=== PATIENT | male | born 1935 | race Caucasian/White ===

== ENCOUNTER 2018-12-19 16:20 | Emergency (ER) | payer MEDICARE, BC ==
[~2018-12-19 16:20] MED LIST: ASPI81CT PO; COZAAR; LIPITOR
[2018-12-19 16:22] VITALS: TEMP 97.6
[2018-12-19 16:36] LABS: BASO # 0.1 (0.0-0.2); BASO % 0.8 % (0.0-2.0); EOS # 0.3 (0.0-0.7); EOS % 3.6 % (0-4.0); GRAN # 5.3 (1.4-6.5); GRAN % 63.1 % (42.2-75.2); HEMATOCRIT 47.7 % (42.0-52.0); HEMOGLOBIN 15.7 g/dl (13.5-18.0); LYMPH # 1.9 (1.2-3.4); LYMPH % 22.2 % (20.0-51.0); MEAN CELL VOLUME 96 fl (80.0-100.0); MEAN CORPUSCULAR HEMOGLOBIN 32 pg (27.0-31.0); MEAN CORPUSCULAR HGB CONC 33 g/dl (33.0-37.0); MONO # 0.9 (0.1-0.6); MONO % 10.1 % (1.7-9.3); PLATELET COUNT 201 K/mm3 (130-400); RED BLOOD COUNT 4.97 M/mm3 (4.20-5.60); REDCELL DISTRIBUTION WIDTH-CV 12.4 % (11.5-14.5)
[2018-12-19 17:29] LABS: ALANINE AMINOTRANSFERASE 27 U/L (21-72); ALBUMIN 3.9 gm/dL (3.5-5.0); ALKALINE PHOSPHATASE 91 U/L (50-136); ANION GAP 9 mmol/L (7-16); AST,SGOT 23 U/L (15-37); BILIRUBIN,TOTAL 0.3 mg/dL (0.0-1.0); BLOOD UREA NITROGEN 21 mg/dL (9-20); CARBON DIOXIDE 24 mmol/L (22-30); CHLORIDE 107 mmol/L (98-107); CREATININE, serum 1.22 (0.66-1.25); GLUCOSE 126 mg/dL (74-106); POTASSIUM 3.7 mmol/L (3.4-5.0); SODIUM 140 mmol/L (137-145); TOTAL PROTEIN 6.6 gm/dL (6.4-8.2)
[2018-12-19 17:30] LABS: C-REACTIVE PROTEIN < 0.5 mg/dL (0.0-0.9)
[2018-12-19 18:28] LABS: PROLACTIN 26.5 ng/mL (3.7-17.9)
[2018-12-19 18:36] LABS: TROPONIN-I < 0.012 ng/mL (0.000-0.035)
[2018-12-19 19:35] VITALS: BP 120/69; PULSE 72
== END 2018-12-19 19:35 | disposition home or self-care (01) ==
LOC: COL.ER 16:20
PROVIDERS: Family Medicine
DX: R55 Syncope and collapse (principal); Z79.82 Long term (current) use of aspirin
CPT/HCPCS: J2405; J7030

== ENCOUNTER 2019-09-03 13:00 | Outpatient (RCR) | payer MEDICARE, BC ==
[2019-09-11] MEDS ORDERED: LIPITOR 40MG TA40 MG PO (20:04)
[2019-09-11] MEDS ORDERED: NYAMYC100000 U/G TP (20:05)
[2019-09-11] MEDS ORDERED: COZAAR 25MG25 MG/TAB PO (20:05)
[2019-09-11] MEDS ORDERED: PROZAC 20MG20 MG PO (20:06)
[2019-09-11] MEDS ORDERED: NIRAVAM1 MG PO (20:06)
[2019-09-11] MEDS ORDERED: PLAVIX 75MG TAB75 MG PO (20:07)
[2019-09-14] MEDS ORDERED: XANAX 0.5MG0.5 MG PO (12:29)
== END 2019-11-18 | disposition home or self-care (01) ==
LOC: WSPT
DX: I63.9 Cerebral infarction, unspecified (principal)

== ENCOUNTER 2019-09-11 19:11 | Inpatient (IN) | payer MEDICARE, BC ==
[~2019-09-11] VITALS: Ht 172.7 cm; Wt 85.4 kg
[2019-09-11 20:02] LABS: BASO # 0.1 (0.0-0.2); BASO % 0.7 % (0.0-2.0); EOS # 0.6 (0.0-0.7); EOS % 8.1 % (0-4.0); GRAN # 4.1 (1.4-6.5); GRAN % 58.1 % (42.2-75.2); HEMATOCRIT 47.2 % (42.0-52.0); HEMOGLOBIN 15.7 g/dl (13.5-18.0); LYMPH # 1.4 (1.2-3.4); MEAN CELL VOLUME 93 fl (80.0-100.0); MEAN CORPUSCULAR HEMOGLOBIN 31 pg (27.0-31.0); MEAN CORPUSCULAR HGB CONC 33 g/dl (33.0-37.0); MEAN PLATELET VOLUME 10.5 fl (7.4-10.4); MONO # 0.9 (0.1-0.6); PLATELET COUNT 199 K/mm3 (130-400); RED BLOOD COUNT 5.08 M/mm3 (4.20-5.60); REDCELL DISTRIBUTION WIDTH-CV 12.4 % (11.5-14.5)
[2019-09-11] MEDS ORDERED: LIPITOR 40MG TA40 MG PO (20:04)
[2019-09-11] MEDS ORDERED: NYAMYC100000 U/G TP (20:05)
[2019-09-11] MEDS ORDERED: COZAAR 25MG25 MG/TAB PO (20:05)
[2019-09-11] MEDS ORDERED: PROZAC 20MG20 MG PO (20:06)
[2019-09-11] MEDS ORDERED: NIRAVAM1 MG PO (20:06)
[2019-09-11] MEDS ORDERED: PLAVIX 75MG TAB75 MG PO (20:07)
[2019-09-11 20:15] LABS: ALANINE AMINOTRANSFERASE 17 U/L (4-49); ALBUMIN 3.8 gm/dL (3.5-5.0); ALKALINE PHOSPHATASE 107 U/L (50-136); ANION GAP 7 mmol/L (7-16); AST,SGOT 20 U/L (15-37); BILIRUBIN,TOTAL 0.5 mg/dL (0.0-1.0); BLOOD UREA NITROGEN 20 mg/dL (9-20); CALCIUM 9.1 mg/dL (8.4-10.2); CARBON DIOXIDE 28 mmol/L (22-30); CHLORIDE 103 mmol/L (98-107); CREATINE KINASE 33 U/L (55-170); CREATININE, serum 1.07 (0.66-1.25); GLUCOSE 92 mg/dL (74-106); LIPASE 45 U/L (23-300); POTASSIUM 3.9 mmol/L (3.4-5.0); SODIUM 138 mmol/L (137-145); TOTAL PROTEIN 6.8 gm/dL (6.4-8.2)
[2019-09-11 20:34] LABS: INR 1.1 (0.8-3.0); PROTHROMBIN TIME 12.7 SECONDS (9.7-12.8)
[2019-09-11 20:44] LABS: TROPONIN-I < 0.012 ng/mL (0.000-0.035)
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
[2019-09-11 22:55] VITALS: BP 127/83; PULSE 73; TEMP 97.8
[2019-09-11 23:00] VITALS: BP 127/83; PULSE 73; TEMP 97.8
--- NOTE | 2019-09-11 23:00 | NUR ---
PATIENT ADMITTED TO ROOM 345 VIA ER CART. BED ALARM ON.
--- NOTE | 2019-09-12 03:25 | NUR ---
PATIENT SLEEPING, DOES NOT WAKE WHEN ROOM ENTERED BY STAFF, OBSERVED BREATHING NONLABORED AND EVEN. BED ALARM ON. IVF INFUSING WITH NO PROBLEMS.
[2019-09-12 04:36] VITALS: BP 147/85; PULSE 79; TEMP 98
[2019-09-12 07:04] LABS: BASO % 0.4 % (0.0-2.0); EOS # 0.5 (0.0-0.7); EOS % 6.9 % (0-4.0); GRAN # 4.7 (1.4-6.5); GRAN % 66.2 % (42.2-75.2); HEMATOCRIT 42.8 % (42.0-52.0); HEMOGLOBIN 14.3 g/dl (13.5-18.0); LYMPH # 1.1 (1.2-3.4); LYMPH % 15.8 % (20.0-51.0); MEAN CELL VOLUME 94 fl (80.0-100.0); MEAN CORPUSCULAR HEMOGLOBIN 31 pg (27.0-31.0); MEAN CORPUSCULAR HGB CONC 33 g/dl (33.0-37.0); MONO # 0.7 (0.1-0.6); MONO % 10.4 % (1.7-9.3); PLATELET COUNT 191 K/mm3 (130-400); RED BLOOD COUNT 4.56 M/mm3 (4.20-5.60); REDCELL DISTRIBUTION WIDTH-CV 12.6 % (11.5-14.5)
[2019-09-12 07:11] LABS: CALCIUM 8.6 mg/dL (8.4-10.2); CREATININE, serum 0.99 (0.66-1.25); POTASSIUM 3.6 mmol/L (3.4-5.0)
[2019-09-12 07:19] VITALS: BP 167/86; PULSE 71; TEMP 98.8
--- NOTE | 2019-09-12 07:32 | NUR ---
PATIENT RESTING IN BED DURING CHANGE OF SHIFT REPORT GIVEN TO DAY SHIFT NURSESHERRI. BED ALARM ON.
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
--- NOTE | 2019-09-12 10:40 | NUR ---
MAIN met with the patient to discuss discharge plan. The patient lives in [place] with his , Rosibel (ph#[phone]), and [id number]. He reports that they are moving to a new house in [place] next Tuesday. He reports independence with ADLs and has a walker. He receives outpatient PT at [facility] 3 times a week. The patient's PCP is Dr. Clemente Webber and he receives his medications at [facility] in [place]. He reports no difficulties obtaining his meds. The patient does not have advanced directives in EMR, but he reports that he does have them completed and that his is his DPOA-HC. The patient reports that he is not sure if he will need any services upon discharge. PT then worked with the patient and they are recommending post-acute rehab. MAIN contacted the patient's , Rosibel, to review discharge plan and to discuss PT's recommendation. Rosibel confirmed the above information. Rosibel reports that it has to be the patient's decision on whether he would be agreeable to SNF or not. She states that he has been having a lot of falls lately. MAIN then followed up with the patient to review PT's recommendation. The patient reports that he would be open to post-acute rehab. MAIN provided him with Medicare.gov's list of SNFs in the [place] area. The patient reports that he does not have a preference at this time and would need to think about it. He requested that SW contact his back to review the facilities. MAIN then contacted Rosibel. Rosibel reports that she is not familiar with the facilities around here and asked SW to email her Medicare.gov's list. MAIN emailed Rosibel the list. MAIN to follow up with the patient and on preferences and will continue to follow.
[2019-09-12 12:00] VITALS: BP 145/81; PULSE 65; TEMP 97.4
[2019-09-12 16:00] VITALS: BP 162/82; PULSE 61; TEMP 97.5
--- NOTE | 2019-09-12 19:37 | NUR ---
PATIENT UP IN CHAIR EATING SUPPER DURING CHANGE OF SHIFT REPORT FROM DAY SHIFT NURSE. CHAIR ALARM ON.
[2019-09-12 19:52] VITALS: BP 157/91; PULSE 69; TEMP 97.7
--- NOTE | 2019-09-12 20:00 | NUR ---
PATIENT ANSWERS ORIENTATIONS APPROPRIATELY AND FOLLOWS COMMANDS WELL. PATIENT STATED HE FELT WEAK AND WAS ABLE TO TRANSFER FROM CHAIR TO BED WITH X1 STAFF ASST FROM CHAIR TO BED WITH GB&WW. REQUIRED FREQUENT CUES WITH TRANSFER POSITIONING. DENIES CHEST PAIN OR SHORTNESS OF BREATHE.
--- NOTE | 2019-09-12 21:30 | NUR ---
PATIENT REPORTS HE NEEDS TO HAVE XANAX TO HELP HIM SLEEP, TAKES XANAX AT HOME. CALLED SONY GARCES, INFORMED OF PATIENT'S REQUEST, ORDER TO BE ENTERED BY PROVIDER FOR MED.
[2019-09-13] VITALS (7 sets, daily range): BP systolic 93–167; BP diastolic 58–89; PULSE 60–85; TEMP 97.8–98.6
--- NOTE | 2019-09-13 07:27 | NUR ---
Patient sleeping during change of shift report given to day shift nurseJustyna. Bed alarm on.
[2019-09-13 09:28] LABS: BASO # 0.1 (0.0-0.2); BASO % 0.7 % (0.0-2.0); EOS # 0.6 (0.0-0.7); GRAN # 4.2 (1.4-6.5); GRAN % 61.5 % (42.2-75.2); HEMATOCRIT 44.3 % (42.0-52.0); HEMOGLOBIN 14.8 g/dl (13.5-18.0); LYMPH # 1.2 (1.2-3.4); LYMPH % 17.6 % (20.0-51.0); MEAN CELL VOLUME 93 fl (80.0-100.0); MEAN CORPUSCULAR HEMOGLOBIN 31 pg (27.0-31.0); MEAN CORPUSCULAR HGB CONC 33 g/dl (33.0-37.0); MEAN PLATELET VOLUME 10.7 fl (7.4-10.4); MONO # 0.8 (0.1-0.6); MONO % 11.8 % (1.7-9.3); PLATELET COUNT 190 K/mm3 (130-400); RED BLOOD COUNT 4.79 M/mm3 (4.20-5.60); REDCELL DISTRIBUTION WIDTH-CV 12.4 % (11.5-14.5)
[2019-09-13 09:49] LABS: CALCIUM 8.8 mg/dL (8.4-10.2); CREATININE, serum 1.01 (0.66-1.25); POTASSIUM 3.8 mmol/L (3.4-5.0)
--- NOTE | 2019-09-13 10:23 | NUR ---
Patient to IR for LP at 1020.
[2019-09-13 11:18] LABS: TOTAL PROTEIN,CSF 60 mg/dL (15-45)
[2019-09-13 12:16] LABS: CSF APPEARANCE CLEAR; CSF COLOR COLORLESS; CSF MONONUCLEAR 82 % (70-100); CSF POLYMORPHONUCLEAR 18 % (0-6); CSF RBC 0 /mm3 (0-0)
--- NOTE | 2019-09-13 13:55 | NUR ---
MAIN contacted the patient's , Rosibel, to follow up on preferences for post-acute rehab. Rosibel reports that she has not had a chance to look over the list that MAIN emailed her, but will later today. She states that she is agreeable for MAIN to go ahead and send referrals to [facility], [facility] [address], [facility], and [facility]. MAIN consulted IPR Director, Julianne. MAIN contacted and faxed [facility] to [facility], [facility], and [facility]. SW awaiting their screens.
--- NOTE | 2019-09-13 16:20 | NUR ---
Jeny, at [facility], reports that they are able to accept the patient for a skilled stay. SW to inform the patient and his and will continue to follow.
[2019-09-14 00:53] VITALS: BP 145/72; PULSE 70
--- NOTE | 2019-09-14 00:54 | NUR ---
Resting in bed at this time; denies any needs or concers; will continue to monitor.
[2019-09-14 04:37] VITALS: BP 145/85; PULSE 84; TEMP 97.9
--- NOTE | 2019-09-14 05:08 | NUR ---
Patient noted to have scant urine output this shift. Bladder scan showed 587 ml of urine in bladder. Patient currenlty attempting to use urinal to void. Will continue to monitor.
--- NOTE | 2019-09-14 07:52 | NUR ---
Patient alert and oriented, answers questions. Mentation much improved this morning. Requests to be discharged to home. No c/o at this time.
[2019-09-14 08:07] VITALS: BP 117/60; PULSE 68; TEMP 98.6
--- NOTE | 2019-09-14 08:41 | NUR ---
Patient to radiology at this time.
[2019-09-14] MEDS ORDERED: XANAX 0.5MG0.5 MG PO (12:29)
[2019-09-14 12:39] VITALS: BP 138/78; PULSE 99; TEMP 98.1
--- NOTE | 2019-09-14 13:47 | NUR ---
SW attended clinical rounds. The patient is to tentatively discharge today, 09/13. SW met with the patient to inform of [facility] acceptance and to follow up on preference. The patient reports that he [facility]. MAIN then contacted the patient's , Rosibel, to update. Rosibel reports that her mother is familiar with [facility] and prefers [facility] too and she would be agreeable with the patient going there for SNF. MAIN notified and faxed updates to Jeny at [facility]. MAIN presented and read the IM form outloud to the patient. The patient verbalized understanding and gave SW approval to sign the form on his behalf. SW provided him with a copy. SW to continue to follow.
--- NOTE | 2019-09-14 14:42 | NUR ---
The patient is to discharge today, 09/13, to [facility] for a skilled stay. Transportation was scheduled at 1515, via [facility]. SW informed the patient, his RN, and the patient's (Rosibel), via phone. They were all agreeable to the time. No additional needs at this time.
[2019-09-14 15:31] VITALS: BP 138/78; PULSE 99; TEMP 98.1
--- NOTE | 2019-09-14 15:59 | NUR ---
Attempted x2 to call report to [facility], no answer. Patient tranferred to [facility] via wheelchair/auto with transportation staff at 1600.
== END 2019-09-14 16:00 | disposition home or self-care (01) | DRG 57 ==
LOC: COL.ER 19:11 → SURG 20:52
PROVIDERS: Emergency Medicine; Hospitalist; Physician Assistant; ADMIT Student in an Organized Health Care Education/Training Program
PROC: 009U3ZX Drainage of Spinal Canal, Percutaneous Approach, Diagnostic (ICD-10-PCS; principal; 2019-09-13)
DX: G91.2 (Idiopathic) normal pressure hydrocephalus (principal); I10 Essential (primary) hypertension; G47.00 Insomnia, unspecified; F32.9 Major depressive disorder, single episode, unspecified; F41.9 Anxiety disorder, unspecified; G20 Parkinson's disease; I69.993 Ataxia following unspecified cerebrovascular disease
CPT/HCPCS: 99222-AI; 99231-AI; 99232-AI; 99239; A9585; J0360; J1650; J7030

== ENCOUNTER 2019-10-08 12:40 | Emergency (ER) | payer MEDICARE, BC ==
[~2019-10-08] VITALS: Ht 172.7 cm; Wt 84.1 kg
[~2019-10-08 12:40] MED LIST changes: +COZAAR 25MG25 MG/TAB PO; +LIPITOR 40MG TA40 MG PO; +NIRAVAM1 MG PO; +NYAMYC100000 U/G TP; +PLAVIX 75MG TAB75 MG PO; +PROZAC 20MG20 MG PO; +XANAX 0.5MG0.5 MG PO
[2019-10-08 12:41] VITALS: TEMP 97.9
[2019-10-08 13:27] LABS: BASO # 0.1 (0.0-0.2); BASO % 0.7 % (0.0-2.0); EOS # 0.5 (0.0-0.7); GRAN # 4.5 (1.4-6.5); GRAN % 60.3 % (42.2-75.2); HEMATOCRIT 47.5 % (42.0-52.0); HEMOGLOBIN 15.8 g/dl (13.5-18.0); LYMPH # 1.5 (1.2-3.4); LYMPH % 20.7 % (20.0-51.0); MEAN CELL VOLUME 94 fl (80.0-100.0); MEAN CORPUSCULAR HEMOGLOBIN 31 pg (27.0-31.0); MEAN CORPUSCULAR HGB CONC 33 g/dl (33.0-37.0); MEAN PLATELET VOLUME 10.7 fl (7.4-10.4); MONO # 0.8 (0.1-0.6); PLATELET COUNT 193 K/mm3 (130-400); RED BLOOD COUNT 5.05 M/mm3 (4.20-5.60); REDCELL DISTRIBUTION WIDTH-CV 12.4 % (11.5-14.5)
[2019-10-08 13:35] LABS: INR 1.1 (0.8-3.0); PROTHROMBIN TIME 12.8 SECONDS (9.7-12.8)
[2019-10-08 13:41] LABS: ALANINE AMINOTRANSFERASE 14 U/L (4-49); ALBUMIN 3.9 gm/dL (3.5-5.0); ALKALINE PHOSPHATASE 125 U/L (50-136); ANION GAP 7 mmol/L (7-16); AST,SGOT 20 U/L (15-37); BILIRUBIN,TOTAL 0.9 mg/dL (0.0-1.0); BLOOD UREA NITROGEN 20 mg/dL (9-20); CALCIUM 9.3 mg/dL (8.4-10.2); CARBON DIOXIDE 29 mmol/L (22-30); CHLORIDE 104 mmol/L (98-107); CREATININE, serum 1.19 (0.66-1.25); GLUCOSE 93 mg/dL (74-106); POTASSIUM 4.3 mmol/L (3.4-5.0); SODIUM 139 mmol/L (137-145); TOTAL PROTEIN 7.1 gm/dL (6.4-8.2)
[2019-10-08 13:44] LABS: C-REACTIVE PROTEIN < 0.5 mg/dL (0.0-0.9)
[2019-10-08 14:12] LABS: TROPONIN-I < 0.012 ng/mL (0.000-0.035)
[2019-10-08 15:30] VITALS: BP 140/90; PULSE 71
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
== END 2019-10-08 15:50 | disposition home or self-care (01) ==
LOC: COL.ER 12:40
PROVIDERS: Emergency Medicine
DX: R53.1 Weakness (principal); I10 Essential (primary) hypertension; Z86.73 Personal history of transient ischemic attack (TIA), and cerebral infarction without residual deficits; Z79.02 Long term (current) use of antithrombotics/antiplatelets
CPT/HCPCS: J7040

== ENCOUNTER 2020-01-10 13:00 | Outpatient (RCR) | payer MEDICARE, BC ==
[2020-01-28] MEDS ORDERED: REQUIP2 MG PO (18:40)
[2020-01-28] MEDS ORDERED: SINEMET 25/101 UDTAB PO (18:41)
[2020-01-29] MEDS ORDERED: ASPIRIN 81M81 MG/TA2 PO (10:01)
[2020-01-31] MEDS ORDERED: SINEMET CR 50 M1 TER PO (10:13)
[2020-01-31] MEDS ORDERED: MELATIN 3 MG-11 TAB PO (10:14)
[2020-01-31] MEDS ORDERED: PROTONIX20 MG PO (10:23)
== END 2020-02-25 | disposition home or self-care (01) ==
LOC: WSPT
DX: I63.9 Cerebral infarction, unspecified (principal)

== ENCOUNTER 2020-01-28 11:39 | Observation (INO) | payer MEDICARE, BC ==
[~2020-01-28] VITALS: Ht 172.7 cm; Wt 83.0 kg
[2020-01-28 12:12] LABS: INR 1.2 (0.8-3.0); PROTHROMBIN TIME 12.9 SECONDS (9.7-12.8)
[2020-01-28 12:19] LABS: BASO % 0.4 % (0.0-2.0); EOS # 0.2 (0.0-0.7); EOS % 2.2 % (0-4.0); GRAN # 6.1 (1.4-6.5); GRAN % 75.8 % (42.2-75.2); HEMATOCRIT 48.6 % (42.0-52.0); HEMOGLOBIN 16.3 g/dl (13.5-18.0); LYMPH # 1.1 (1.2-3.4); LYMPH % 13.8 % (20.0-51.0); MEAN CELL VOLUME 92 fl (80.0-100.0); MEAN CORPUSCULAR HEMOGLOBIN 31 pg (27.0-31.0); MEAN CORPUSCULAR HGB CONC 34 g/dl (33.0-37.0); MEAN PLATELET VOLUME 10.7 fl (7.4-10.4); MONO # 0.6 (0.1-0.6); MONO % 7.4 % (1.7-9.3); PLATELET COUNT 228 K/mm3 (130-400); RED BLOOD COUNT 5.27 M/mm3 (4.20-5.60); REDCELL DISTRIBUTION WIDTH-CV 12.6 % (11.5-14.5)
[2020-01-28 12:31] LABS: ALANINE AMINOTRANSFERASE 8 U/L (4-49); ALBUMIN 4.3 gm/dL (3.5-5.0); ALKALINE PHOSPHATASE 122 U/L (50-136); ANION GAP 9 mmol/L (7-16); AST,SGOT 31 U/L (15-37); BILIRUBIN,TOTAL 1.1 mg/dL (0.0-1.0); BLOOD UREA NITROGEN 18 mg/dL (9-20); CALCIUM 9.3 mg/dL (8.4-10.2); CARBON DIOXIDE 26 mmol/L (22-30); CHLORIDE 103 mmol/L (98-107); CREATININE, serum 1.01 (0.66-1.25); GLUCOSE 143 mg/dL (74-106); POTASSIUM 4.4 mmol/L (3.4-5.0); SODIUM 138 mmol/L (137-145); TOTAL PROTEIN 7.5 gm/dL (6.4-8.2)
[2020-01-28 12:51] LABS: ALCOHOL(ethanol),MEDICAL < 10 mg/dL; TROPONIN-I < 0.012 ng/mL (0.000-0.035)
[2020-01-28 15:49] VITALS: BP 165/95; PULSE 69; TEMP 97.6
--- NOTE | 2020-01-28 17:12 | NUR ---
PT PASSED SWALLOW EVAL AND AHA DIET APPROVED BY DR MCNAIR. PT ALSO TAKES ALL MES AT NIGHT AND NONE DURING DAY THUS SCHEDULED MEDS CHANGED TO BEDTIME PER PT HOME REGIMEN. PT SEEN BY DR GARCIA AND MRI ORDERED.
[2020-01-28] MEDS ORDERED: REQUIP2 MG PO (18:40)
[2020-01-28] MEDS ORDERED: SINEMET 25/101 UDTAB PO (18:41)
--- NOTE | 2020-01-28 19:20 | NUR ---
OK BY DR Harding for pt to take home meds at bedtime. clarified to start daily baby aspirin tomorrow 01/28 as pt already received 324mg dose in ED.
--- NOTE | 2020-01-28 20:00 | NUR ---
Assessment complete. Patient answers orientation questions correctly and does not appear to be confused; However, seems to have little knowledge of his home medications. He wears 2 liters oxygen and is tolerating this well. His skin is very slighty pink and warm but patient states he is comfortable and has no allergies. His hand boiler operator helper are strong and equal and he has a slight, Parkinson's tremor in his extremities. A mild left facial droop, which he has had from a previous stroke, is also noted. Patient swallows pills whole and has no aphasic symptoms. Call light in reach and bed alarm on.
[2020-01-28 20:04] VITALS: BP 137/84; PULSE 68; TEMP 98.1
[2020-01-28 20:11] VITALS: BP 125/60; PULSE 77; TEMP 98.4
[2020-01-29 00:32] VITALS: BP 121/75; PULSE 72; TEMP 98
[2020-01-29 05:15] VITALS: BP 126/78; PULSE 64; TEMP 98
--- NOTE | 2020-01-29 05:50 | NUR ---
Patient has had an uneventful, restful night with minimal complaints. Neuro checks have remained consistent and stable. No changes, will continue to monitor.
[2020-01-29 06:21] LABS: CHOLESTEROL RISK RATIO 4.4
[2020-01-29 07:22] VITALS: BP 129/76; PULSE 70; TEMP 97.4
[2020-01-29] MEDS ORDERED: ASPIRIN 81M81 MG/TA2 PO (10:01)
--- NOTE | 2020-01-29 10:15 | NUR ---
Assessment completed, alert/oriented, vital signs stable, denies pain, no new neuro deficits noted and is scheduled for brain MRI sometime this morning, heart RRR/distal pulses are palpable, lungs CTA/ no reps.difficulty noted, ST in room for cognitive eval at is time
[2020-01-29 12:21] VITALS: BP 154/85; PULSE 87; TEMP 98.1
--- NOTE | 2020-01-29 13:31 | NUR ---
Initial visit; Patient thanked Thaw Shed Heater Tender for looking in on him and offering God's blessings.
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
[2020-01-29 17:13] VITALS: BP 136/80; PULSE 75; TEMP 97.5
[2020-01-29 19:23] VITALS: BP 147/91; PULSE 78; TEMP 98.3
--- NOTE | 2020-01-29 20:05 | NUR ---
Patient assessed at this time. Alert and oriented x 4, and able to make needs known. Denies having pain and discomfort at this time. Peripheral INT to left AC flushed, and site is without redness, warmth, swelling, and pain. Denies having SOB and dypsnea. LS CTA. Respirations even and unlabored. HRR. Telemetry: sinus. Capillary refill less than 3 seconds. Non-tenting skin turgor. BSAx4. Abdomen soft and non-tender. No edema. Voices no questions, needs, or concerns at this time. Resting in bed with call light within reach.
[2020-01-30 00:46] VITALS: BP 136/97; PULSE 73; TEMP 97.8
[2020-01-30 04:19] VITALS: BP 140/81; PULSE 64; TEMP 97.5
--- NOTE | 2020-01-30 06:24 | NUR ---
Patient has been awake on and off this shift. Voices no questions, needs, or concerns at this time. Remains on room air at this time. High fall risk precautions in place. Resting in bed with call light within reach.
--- NOTE | 2020-01-30 08:00 | NUR ---
PT TAKEN DOWN FOR LP. PT CONFUSED ABOUT TEST, SHELLEY GARCES CALLED TO DISCUSS LP WITH PT. PT GAVE CONSENT, SHELLEY GARCES CALLED TO OBTAIN CONSENT DUE TO PT CONFUSION ABOUT PROCEDURE. PT PLEASANT, PT STATES GAIT AFTER LP WAS NOT ANY BETTER AND IT FELT THE SAME. PT EXHIBITING ATAXIA, NOT STEADY WITH WALKER BUT NOT REQUIRING ASSISTANCE WITH GAIT. PT GIVEN ATIVAN FOR MRI, MEDICATIONS GIVEN AFTER LP, PT FLAT FOR 1 HOUR AFTER LP. NO OTHER NEEDS.
--- NOTE | 2020-01-30 09:01 | NUR ---
Bita, at [facility], reports that they are able to accept the patient for services. SW to inform the patient and his .
[2020-01-30 09:57] LABS: GLUCOSE,CSF 68 mg/dL (40-70); TOTAL PROTEIN,CSF 86 mg/dL (15-45)
[2020-01-30 10:13] LABS: CSF MONONUCLEAR 38 % (70-100); CSF POLYMORPHONUCLEAR 63 % (0-6); CSF RBC 4000 /mm3 (0-0)
[2020-01-30 10:17] LABS: CSF COLOR PINK
[2020-01-30 10:18] LABS: CSF APPEARANCE HAZY
[2020-01-30 12:00] VITALS: BP 123/70; PULSE 78; TEMP 97.9
--- NOTE | 2020-01-30 12:22 | NUR ---
PT RETURNED FROM MRI. TELE PLACED, PT TRANSFERRED BACK INTO BED.
--- NOTE | 2020-01-30 14:23 | NUR ---
PT VERY UPSET ABOUT NOT RECEIVING UPDATE ABOUT PT. NUMBER ON CHART NOT CORRECT. NEW NUMBER GIVEN TO SHELLEY WHOM STATED SHE CALLED TWICE THIS MORNING WITH NO ANSWER. ATTEMPTED TO CONSOLE ON THE PHONE BUT UNSUCCESSFUL. NEW NUMBER GIVEN TO DR. GARCIA'S OFFICE FOR UPDATE.
--- NOTE | 2020-01-30 15:46 | NUR ---
UPDATE GIVEN FROM DR. GARCIA. HE REPORTS WAS CALLED, UPDATED PT ON HIS STATUS.
--- NOTE | 2020-01-30 16:47 | NUR ---
MAIN met with the patient to discuss SNF. The patient states that he rather leave things as they are. He states that his is going to want him home. MAIN contacted and reviewed SNF with the patient's , Rosibel, again. Rosibel yelled absolutely not and that he is coming home. She is agreeable to home health. MAIN was notified that the patient's [id number] called and requested to speak to MAIN. MAIN contacted the patient's [id number], Lois (ph#[phone]). Lois reports that she has safety concerns for the patient. She states that her daugher, Rosibel, is an alcoholic. She states that is fine when she is not drinking, but that she has started drinking again. MAIN updated the hospitalist. The patient is to discharge tomorrow. SW to continue to follow.
[2020-01-30 17:12] VITALS: BP 140/94; PULSE 81; TEMP 97.8
--- NOTE | 2020-01-30 17:27 | NUR ---
PT VERY EAGER FOR DISCHARGE, PT PLEASANT, URINATES IN URINAL, GAIT UNSTEADY, VITALS STABLE, MEDICATIONS GIVEN, NO OTHER NEEDS AT THIS TIME.
[2020-01-30 19:36] VITALS: BP 141/79; PULSE 70; TEMP 98.3
--- NOTE | 2020-01-30 22:25 | NUR ---
Patient pleasant, A/O x4. Patient denies any pain or discomfort. Denies any chest pain or SOB. Left AC IV site has no s/s of complications. Scheduled medications given per order. Call light within reach. Patient denies any needs at this time.
[2020-01-31 00:43] VITALS: BP 126/68; PULSE 63; TEMP 97.6
[2020-01-31 03:52] VITALS: BP 112/75; PULSE 67; TEMP 97.7
--- NOTE | 2020-01-31 05:47 | NUR ---
Patient was sitting up on the edge of bed around 04:30 am. Patient appears confused. Redirected patient and repositioned patient to lay on bed. Turned on TV show for the patient. No c/o pain or discomfort. Call light within reach. Patient denies any needs at this time.
[2020-01-31 07:31] LABS: BASO % 0.4 % (0.0-2.0); EOS # 0.2 (0.0-0.7); EOS % 2.2 % (0-4.0); GRAN # 5.8 (1.4-6.5); HEMATOCRIT 45.6 % (42.0-52.0); HEMOGLOBIN 15.1 g/dl (13.5-18.0); LYMPH # 1.2 (1.2-3.4); LYMPH % 15.2 % (20.0-51.0); MEAN CELL VOLUME 93 fl (80.0-100.0); MEAN CORPUSCULAR HEMOGLOBIN 31 pg (27.0-31.0); MEAN CORPUSCULAR HGB CONC 33 g/dl (33.0-37.0); MEAN PLATELET VOLUME 10.9 fl (7.4-10.4); MONO # 0.8 (0.1-0.6); PLATELET COUNT 204 K/mm3 (130-400); RED BLOOD COUNT 4.91 M/mm3 (4.20-5.60); REDCELL DISTRIBUTION WIDTH-CV 12.7 % (11.5-14.5)
[2020-01-31 07:41] LABS: CREATININE, serum 0.99 (0.66-1.25); POTASSIUM 3.8 mmol/L (3.4-5.0)
[2020-01-31 07:45] VITALS: BP 144/84; PULSE 62; TEMP 98
--- NOTE | 2020-01-31 10:02 | NUR ---
Patient alert and oriented, answered question accurately, requires some assitant to adjust in bed. Help patient set up breakfast. Patient ate independently. this RN provided update to patient's spouse this am. Patient resting in bed at this time.
[2020-01-31] MEDS ORDERED: SINEMET CR 50 M1 TER PO (10:13)
[2020-01-31] MEDS ORDERED: MELATIN 3 MG-11 TAB PO (10:14)
[2020-01-31] MEDS ORDERED: PROTONIX20 MG PO (10:23)
--- NOTE | 2020-01-31 11:43 | NUR ---
MAIN attended clinical rounds. The patient's , Rosibel, was on speaker phone. The patient is ready to d/c today, 01/30. MAIN then followed up with the patient to address his 's alcohol use and how his [id number] and the clinical team have safety concerns for him. MAIN asked the patient if he was aware that his was drinking again. The patient states that he was not aware that she was drinking again. SW discussed concerns with him getting into a vehicle with her and discussed the option of taking a taxi home. The patient states that things with his will be fine and that he feels comfortable getting into a vehicle with her. He declined alternate transportation. MAIN then received a phone call from Nancy, APS worker. Nancy reports that she just interviewed the patient's and is at the hospital now to interview the patient. Nancy states that the patient's is denying alcohol use. Nancy arrived to the hospital and is interviewing the patient. The patient is to discharge back home with his today, 01/30, with home health services for nursing home/PT/OT through [facility]. MAIN notified and faxed d/c orders to Bita at [facility]. No additional needs at this time.
[2020-01-31 11:48] VITALS: BP 146/72; PULSE 86; TEMP 98.1
--- NOTE | 2020-01-31 16:09 | NUR ---
INT discontinued, patient was discharged home with homehealth, new prescription for Aspirin, Melatonin, Carbidopa/Levodopa 50mg/200mg, protonic. Losartan and Xanax was discontinued. Provided discharge education to patient and spouse.
== END 2020-01-31 14:30 | disposition home or self-care (01) ==
LOC: COL.ER 11:39 → MEDICAL 13:11 → EDBEDREQ 14:38 → EDBEDREQSVC 14:38 → EDBEDREQTM 14:38 → MEDICAL 01-31 14:30
PROVIDERS: Emergency Medicine; Physician Assistant; ADMIT Internal Medicine
DX: I69.920 Aphasia following unspecified cerebrovascular disease (principal); I69.992 Facial weakness following unspecified cerebrovascular disease; G20 Parkinson's disease; I10 Essential (primary) hypertension; E78.5 Hyperlipidemia, unspecified; F41.9 Anxiety disorder, unspecified; F32.9 Major depressive disorder, single episode, unspecified; R53.81 Other malaise; K21.9 Gastro-esophageal reflux disease without esophagitis; G91.2 (Idiopathic) normal pressure hydrocephalus; Z79.02 Long term (current) use of antithrombotics/antiplatelets; Z20.828 Contact with and (suspected) exposure to other viral communicable diseases
CPT/HCPCS: A9585; G0378; J1650; J2060; J2405; J7030; Q9967

== ENCOUNTER 2020-06-02 14:00 | Outpatient (RCR) | payer MEDICARE, BC ==
[~2020-06-02 14:00] MED LIST changes: +ASPIRIN 81M81 MG/TA2 PO; +MELATIN 3 MG-11 TAB PO; +PROTONIX20 MG PO; +REQUIP2 MG PO; +SINEMET 25/101 UDTAB PO; +SINEMET CR 50 M1 TER PO
== END 2020-06-05 | disposition home or self-care (01) ==
LOC: WSPT
DX: I63.9 Cerebral infarction, unspecified (principal); G47.00 Insomnia, unspecified

== ENCOUNTER 2020-07-08 10:45 | Outpatient (RCR) | payer MEDICARE, BC | END 2020-07-29 | disposition still patient (30) | LOC: WSPT | DX: G20 Parkinson's disease (principal) ==

== ENCOUNTER 2020-10-13 23:49 | Inpatient (IN) | payer MEDICARE, BC ==
[~2020-10-13] VITALS: Ht 175.3 cm; Wt 81.8 kg
[2020-10-14 00:22] LABS: BASO # 0.1 (0.0-0.2); BASO % 0.8 % (0.0-2.0); EOS # 0.3 (0.0-0.7); EOS % 2.8 % (0-4.0); GRAN # 8.5 (1.4-6.5); GRAN % 73.4 % (42.2-75.2); HEMATOCRIT 42.2 % (42.0-52.0); HEMOGLOBIN 13.7 g/dl (13.5-18.0); LYMPH # 1.7 (1.2-3.4); LYMPH % 14.5 % (20.0-51.0); MEAN CELL VOLUME 97 fl (80.0-100.0); MEAN CORPUSCULAR HEMOGLOBIN 31 pg (27.0-31.0); MEAN CORPUSCULAR HGB CONC 33 g/dl (33.0-37.0); MEAN PLATELET VOLUME 10.6 fl (7.4-10.4); MONO # 0.9 (0.1-0.6); MONO % 7.7 % (1.7-9.3); PLATELET COUNT 292 K/mm3 (130-400); RED BLOOD COUNT 4.37 M/mm3 (4.20-5.60); REDCELL DISTRIBUTION WIDTH-CV 12.2 % (11.5-14.5)
[2020-10-14 00:29] LABS: INR 1.2 (0.8-3.0); PROTHROMBIN TIME 12.9 SECONDS (9.7-12.8)
[2020-10-14 00:32] LABS: ALBUMIN 3.6 gm/dL (3.5-5.0); BILIRUBIN,TOTAL 0.2 mg/dL (0.0-1.0); CALCIUM 8.6 mg/dL (8.4-10.2); CREATININE, serum 1.12 (0.66-1.25); POTASSIUM 4.1 mmol/L (3.4-5.0); TOTAL PROTEIN 6.5 gm/dL (6.4-8.2)
[2020-10-14 07:28] VITALS: BP 87/65; PULSE 123; TEMP 97.9
[2020-10-14 08:09] LABS: BASO # 0.1 (0.0-0.2); BASO % 0.5 % (0.0-2.0); EOS # 0.2 (0.0-0.7); EOS % 1.7 % (0-4.0); GRAN # 8.1 (1.4-6.5); GRAN % 71.7 % (42.2-75.2); LYMPH % 17.5 % (20.0-51.0); MEAN CELL VOLUME 95 fl (80.0-100.0); MEAN CORPUSCULAR HGB CONC 33 g/dl (33.0-37.0); MEAN PLATELET VOLUME 10.8 fl (7.4-10.4); MONO # 0.9 (0.1-0.6); MONO % 8.1 % (1.7-9.3); PLATELET COUNT 303 K/mm3 (130-400); RED BLOOD COUNT 3.72 M/mm3 (4.20-5.60); REDCELL DISTRIBUTION WIDTH-CV 12.3 % (11.5-14.5)
[2020-10-14 08:14] LABS: HEMATOCRIT 35.5 % (42.0-52.0); HEMOGLOBIN 11.6 g/dl (13.5-18.0); MEAN CORPUSCULAR HEMOGLOBIN 31 pg (27.0-31.0)
[2020-10-14 08:17] LABS: CALCIUM 8.2 mg/dL (8.4-10.2); CREATININE, serum 1.01 (0.66-1.25); POTASSIUM 4.5 mmol/L (3.4-5.0)
[2020-10-14] MEDS ORDERED: SINEMET 25/101 UDTAB PO (10:41)
[2020-10-14] MEDS ORDERED: XANAX 1MG1 MG PO (10:43)
[2020-10-14 11:42] VITALS: BP 97/58; PULSE 105; TEMP 97.5
--- NOTE | 2020-10-14 12:44 | NUR ---
First visit from the floorworker. prayed with patient. No other needs right now.
[2020-10-14] MEDS ORDERED: VITAMIND3 5000 PO (14:25)
[2020-10-14] MEDS ORDERED: DITROPAN 5MG TAB5 MG PO (14:26)
[2020-10-14 16:37] VITALS: BP 115/73; PULSE 87; TEMP 98
[2020-10-14 17:14] LABS: HEMOGLOBIN 10.5 g/dl (13.5-18.0)
--- NOTE | 2020-10-14 19:49 | NUR ---
PATIENT WAS ADMITTED FOR THE ED THIS AM FOR GI BLEED. TELE CALLED AND INFORMED THIS RN THAT PATIENT HAD A 30 SECOND RUN OF AFIB RVR, AND THEN PROCEEDED TO CONVERT BACK TO NSR. PROVIDER NOTIFIED. UPON INITIAL ASSESSMENT NORMAL S1 AND S2 SOUNDS PRESENT, RADIAL AND PEDAL PULSES +2 BILATERALLY, LUNGS CLEAR TO AUSCULTATION, BOWEL SOUNDS PRESENT IN ALL FOUR QUADRANTS, REDNESS TO THE GROIN NOTED. PATIENT WAS PALE AND CLAMMY. PATIENT PROCEEDED TO HAVE A LARGE RED, JELLY LIKE STOOL. UPON COMPLETION OF THE STOOL, PATIENT'S COLOR RETURNED AND SKIN WAS NOTED TO BE DRY. PATIENT HAD 4 MORE EPISODES OF THIS THROUGOUT THE SHIFT. PATIENT'S BLOOD PRESSURE NOTED TO BE LOW. PROVIDER CONTACTED AND BOLUS WAS SUBSQUENTLY ORDERED AND ADMINISTERED. BLOOD PRESSURE IS NOW STABLE. HAS BEEN AT THE BEDSIDE THE ENTIRE DAY. GI CONSULTED AND PATIENT IS TO HAVE A COLONOSCOPY IN THE AM. PATIENT DENIES ANY PAIN, DISCOMFORT, SOA, OR FURTHER NEEDS AT THIS TIME. CALL LIGHT IN REACH. FALL PRECAUTIONS IN PLACE.
[2020-10-14 20:45] VITALS: BP 138/66; PULSE 65
[2020-10-14 22:29] LABS: HEMATOCRIT 28.2 % (42.0-52.0)
--- NOTE | 2020-10-14 23:31 | NUR ---
PT ALERT, ORIENTED TO PERSON, PLACE, TIME, SITUATION WITH VERBAL PROMPTING. PT HAS DELAYED RESPONSES TO QUESTIONS, BUT ABLE TO ANSWER APPROPRIATELY. PRESENT AT BEDSIDE, ABLE TO HELP ANSWER QUESTIONS AND VERBALLY PROMPT PT. BOWEL PREP REGIME STARTED AT THIS TIME. COOL EXTREMITIES NOTED, 2+ PULSES AND CAP REFILL <3S IN EXTREMITIES. PT REORIENTED TO CALL LIGHT. NO FURTHER NEEDS AT THIS TIME.
[2020-10-15] VITALS (20 sets, daily range): BP systolic 81–142; BP diastolic 44–81; PULSE 60–120; TEMP 94.5–97.9
--- NOTE | 2020-10-15 02:26 | NUR ---
PT HAD ONE BOUT OF INCONTINENCE OF STOOL. STOOL WAS LIQUID, BLOODY, LARGE IN AMOUNT. PT CLEANED WITH PERSONAL CLEANSING WIPES. FULL LINEN CHANGE PROVIDED.
--- NOTE | 2020-10-15 02:47 | NUR ---
MILI MCMAHAN NOTIFIED OF DOWNWARD TRENDING HGB. RECEIVED INSTRUCTIONS TO CONTINUE TO MONITOR BP IF SBP <90 OR IF PT COMPLAINS OF CHEST PAIN, DIZZINESS TO CONTACT PROVIDER AGAIN.
--- NOTE | 2020-10-15 04:17 | NUR ---
SPO2 OF 91% NOTED IN VS VERIFICATION. RECHECKED SPO2 AT THIS TIME. VALUE OF 97% NOTED.
--- NOTE | 2020-10-15 05:47 | NUR ---
PT PLACED IN NEW GOWN. PT RING TAPED. PT SIGNED CONSENT AT THIS TIME. NEW IV BAG PREPPED TO BE HUNG PRIOR TO PROCEDURE.
--- NOTE | 2020-10-15 06:48 | NUR ---
DR. CALLEJAS NOTIFIED OF BOWEL MOVEMENTS FROM BOWEL PREP. TAP WATER ENEMA ORDERED. COMPLETED, 750ML GIVEN. BLOODY, LIQUID EXPELLED AT THIS TIME. PT CLEANED, NEW DEPEND ON. PT PREOP REPORT GIVEN, PT PREOP CHARTING COMPLETED. PT CONSENT SIGNED.
[2020-10-15 07:23] LABS: MEAN CELL VOLUME 98 fl (80.0-100.0); MEAN CORPUSCULAR HEMOGLOBIN 31 pg (27.0-31.0); MEAN CORPUSCULAR HGB CONC 32 g/dl (33.0-37.0); MEAN PLATELET VOLUME 10.7 fl (7.4-10.4); PLATELET COUNT 214 K/mm3 (130-400); RED BLOOD COUNT 2.87 M/mm3 (4.20-5.60); REDCELL DISTRIBUTION WIDTH-CV 12.4 % (11.5-14.5)
[2020-10-15 07:35] LABS: CALCIUM 7.7 mg/dL (8.4-10.2); CREATININE, serum 0.89 (0.66-1.25); POTASSIUM 3.7 mmol/L (3.4-5.0)
--- NOTE | 2020-10-15 08:00 | NUR ---
PT BACK TO ROOM 351 @ 0800. NS IS INFUSING @ 100ML/HR. PT IS AWAKE, IS NOT ORIENTED TO PLACE, STATES "AM I IN [place]?" PT REORIENTED TO PLACE ET SITUATION. REPEATEDLY ASKS IF HE IS ABLE TO GO HOME TODAY. HEART ET LUNG SOUNDS ARE REGULAR, NO EDEMA NOTED. PT DENIES ANY PAIN. PT IS INSTRUCTED ON USE OF CALL LIGHT. PT STATES "OK" ET CLOSES HIS EYES. BED ALARM TURNED ON.
--- NOTE | 2020-10-15 11:30 | NUR ---
TELE INFORMS THIS NURSE THAT PT'S HR IS IN THE 130s. PT IS CHECKED ON ET IS LYING IN BED LOOKING @ HIS CELL PHONE. PT DENIES ANY CHEST PAIN OR SOB, IS ALERT & ORIENTED. OXYGEN SATS READ @ 92-100% ON ROOM AIR, RESPIRATIONS ARE UNLABORED. SHORTLY AFTER ARRIVING, PT'S HR SLOWS TO 95-100. APICAL HEART SOUNDS ARE REGULAR. PT DENIES OTHER NEEDS @ THIS TIME, STATES THAT HE FEELS GREAT. CALL LIGHT WITHIN REACH, BED ALARM TURNED ON.
--- NOTE | 2020-10-15 12:15 | NUR ---
PT IS RESTING IN BED WITH EYES CLOSED @ THIS TIME. BLOOD GLUCOSE IS 98. PT IS DROWSY BUT EASILY AROUSED TO NAME. PT IS ORIENTED X3. NOTED BP IS HYPOTENSIVE @ 70s/80s SYSTOLIC. TACHYCARDIA LOW TO MID 100s. PT IS ASYTOMATIC, PLACED IN [place] POSITION. IV FLUIDS INFUSING. BP INCREASES TO 90s/50s. HR IS NOW IN LOW 100s. STAT EKG ORDERED ET PROVIDER. PT ALSO PLACED ON NC @ 2L TO KEEP SATS ABOVE 90%. SATS ON ROOM AIR WERE 85-89%. RESPIRATIONS ARE 20/MIN. PT DENIES ANY SOB. PT HAS HX OF COPD. WILL CONTINUE TO MONITOR.
--- NOTE | 2020-10-15 12:20 | NUR ---
NO NEW ORDERS FROM HOSPITALIST AT THIS TIME.
--- NOTE | 2020-10-15 12:33 | NUR ---
Plan is to return home with [place] . SW met with patient about care. Patient rpeorts that he resides locally with . Gave permission to speak with about his care. rpeorts that the PCP is Dr. Webber. They obtain RX from [facility]. Patient uses a Walker for mobility but also has an electric Wheelchair. Patient obtains oxygen from [facility] but does not know how many liters. Patient reports that he also sees Dr. Cantrell. They are interested in doing Outpatient therapy with Ximena at the [facility] but also has Home health with [facility]. Patient reports that he would like to switch PCP and is looking for a referral to another PCP. for care. Patient reports wanting to get home tomorrow. Patient denies any care concerns. SW educated on serivces available to them thru casemangement. Will follow for more care cocnerns.
--- NOTE | 2020-10-15 14:55 | NUR ---
TELE CALLED AND REPORTED PATIENT'S HR IS IN THE 160'S/A-FIB ON TELE. UPON ENTERING ROOM PATIENT WAS STANDING AT SIDE OF BED AND WAS INCONTINENT OF BOWEL & BLADDER. NOTED EXTREMELY LARGE BLOOD-CLOT BOWL MOVEMENT ON THE FLOOR THAT LOOKED LIKE A HUGE CLOT AND WAS VERY DARK IN COLOR. NURSING ENTERED ROOM TALKING WITH ON PHONE. WHEN PATIENT SAW NURSING HE STATED "IM TIRED" AND STARTED TO LAY ON THE ROOM FLOOR. NURSING WAS UNABLE TO STOP PATIENT FROM LAYING ON FLOOR. STAFF BELIEVED THE TURNED THE BED ALARM OFF DUE TO PATIENT NEEDING TO GO TO THE BATHROOM. OUT IN HALLS. PATIENT HAS BLOOD & URINE ALL OVER HIMSELF. PATIENT STILL HAVE SCD'S, VITALS & IV FLUIDS CONNECTED AND COULDN'T MAKE IT TO THE BATHROOM WHICH IS WHEN LEFT THE PATIENT STANDING ALONE IN THE ROOM. CHARGE NURSE, CONCERT PIANIST, KILN CHARGER, HOSPITALIST P.A. AND ALL AT BEDSIDE. PATIENT DID NOT FALL AND NO INJURY OCCURED. PATIENT ASSISTED TO GET CLEANED UP AND BACK INTO BED. NOTED HYPOTENTION WITH B/P IN THE 80'S. HR IS NOW IN THE MID 100'S. GIVING 500CC FLUID BOLUS AND T&S PER HOSPITALIST. NO OTHER ORDERS AT THIS TIME. PATIENT VITALS NOW STABLE WITH INCREASED IV FLUIDS AND OXYGEN BACK ON AT 2L. SATS NOW IN THE MID 90'S. PATIENT REMAINS A&O. BACK AT BEDSIDE. WILL CONTINUE TO MONITOR.
--- NOTE | 2020-10-15 15:30 | NUR ---
SIMONE GALVEZ TAKING OVER PATIENT CARE. REPORT GIVEN.
--- NOTE | 2020-10-15 16:09 | NUR ---
500mL FLUID BOLUS COMPLETED @ THIS TIME. RATE CHANGED TO 100ML/HR. PT STATES HE "FEELS GREAT". PT OFFERED DRINK OF WATER, REFUSES ET STATES THAT HE "GOOD @ THIS TIME". PT REMAINS ALERT & ORIENTED X3. BED ALARM IS TURNED ON. PT IS REMINDED TO PRESS CALL LIGHT NEEDED, EXPRESSES UNDERSTANDING. O2 SATS @ 98% ON 2L, DECREASED TO 1L ET SATS REMAIN @ 98-100%. WILL CONTINUE TO MONITOR.
--- NOTE | 2020-10-15 18:03 | NUR ---
PT PIVOT TRANSFERRED TO [facility] WITH 2 ASSIST USING GAIT BELT. PT IS HESITANT ET DOES NOT FOLLOW DIRECTIONS WELL. NEEDS FREQUENT PROMPTING. PT IS ABLE TO URINATE. ASSISTED BACK TO BED WITH NOTICEABLE WEAKNESS. BED ALARM TURNED ON, SPOUSE @ BEDSIDE, CALL LIGHT WITHIN REACH.
[2020-10-15 18:51] LABS: HEMATOCRIT 23.6 % (42.0-52.0); HEMOGLOBIN 7.5 g/dl (13.5-18.0)
--- NOTE | 2020-10-15 23:15 | NUR ---
Notified by tele at this time that patient's heart rate has converted to afib/aflutter with a rate up to 160. Patient up to [facility] where he has another large, bloody bowel movement. Patient becomes diaphoretic and weak. He is assisted back to bed and heart rate converts back to sinus tachycardia with rate 95-120. SAP BI DEVELOPER Vane notified, no additional orders. Blood transfusion is initiated and vital signs are being closely monitored. Bed alarm set and call light within reach.
[2020-10-15 23:19] LABS: HEMATOCRIT 23.5 % (42.0-52.0); HEMOGLOBIN 7.6 g/dl (13.5-18.0)
[2020-10-16] VITALS (14 sets, daily range): BP systolic 94–157; BP diastolic 38–79; PULSE 58–96; TEMP 97.5–98
[2020-10-16 03:55] LABS: MEAN CELL VOLUME 96 fl (80.0-100.0); MEAN CORPUSCULAR HGB CONC 33 g/dl (33.0-37.0); PLATELET COUNT 157 K/mm3 (130-400); RED BLOOD COUNT 2.36 M/mm3 (4.20-5.60); REDCELL DISTRIBUTION WIDTH-CV 13.2 % (11.5-14.5)
[2020-10-16 03:56] LABS: HEMATOCRIT 22.6 % (42.0-52.0); HEMOGLOBIN 7.4 g/dl (13.5-18.0); MEAN CORPUSCULAR HEMOGLOBIN 31 pg (27.0-31.0)
[2020-10-16 04:06] LABS: CALCIUM 7.6 mg/dL (8.4-10.2); CREATININE, serum 0.84 (0.66-1.25)
--- NOTE | 2020-10-16 06:48 | NUR ---
Patient has had unstable night. He tried to stand up and go to the restroom. But unable to stand by himself and ambulate. His gown and bed had blood and the floor was wet with urine. Linens and gown changed. 1 unit of blood given without adverse reactions. Hgb after 1 hr showed 7.4 so it is needed 1 unit more. After blood transfusion patient has been sleeping. Her BP has been over 90s. Shift report given to the day nurse.
--- NOTE | 2020-10-16 08:13 | NUR ---
Patient very restless and confused this morning. Kept trying to climb out of bed, pulling gown and blankets off, pulling at IVs and tele box. This RN was told that when patient became like this, it was a sign that he needed to use the bathroom. This RN assisted the patient with the urinal as patient stated he needed to urinate. Patient did not produce any output. This RN called the PA jatin and she ordered 0.25mg of IV lorazepam. This RN administered the medication and the patient is now sleeping. IV dressing was changed on the right AC as it was leaking. Leaking has ceased with dressin change.
--- NOTE | 2020-10-16 11:26 | NUR ---
RN in the room for first 15mins of blood transfusion. PCT took patient's BS and his BS was 69. Patient is currently drinking orange juice.
--- NOTE | 2020-10-16 12:44 | NUR ---
Vazquez inserted. 1400ml drained initially.
--- NOTE | 2020-10-16 15:38 | NUR ---
Initial visit; Patient's requested prayer for him. Liquor Merchant was blessed to finally find Cain awake and offer comfort and prayer for Cain and Rosibel.
[2020-10-16 17:24] LABS: HEMATOCRIT 25.6 % (42.0-52.0); HEMOGLOBIN 8.3 g/dl (13.5-18.0)
--- NOTE | 2020-10-16 20:00 | NUR ---
Assessment complete. Patient currently resting comfortably in bed. He answers orientation questions correctly but is forgetful of limitations. He has no complaints of pain and no edema is noted. Lungs are clear with diminished bases and HR is normal/regular. Patient breathes RA. Comfort measures provided and bed alarm set. Will continue to monitor.
[2020-10-17] VITALS (11 sets, daily range): BP systolic 81–139; BP diastolic 44–60; PULSE 73–96; TEMP 97.5–98.9
[2020-10-17 08:25] LABS: MEAN CELL VOLUME 93 fl (80.0-100.0); MEAN CORPUSCULAR HGB CONC 33 g/dl (33.0-37.0); MEAN PLATELET VOLUME 11.3 fl (7.4-10.4); PLATELET COUNT 167 K/mm3 (130-400); RED BLOOD COUNT 2.58 M/mm3 (4.20-5.60); REDCELL DISTRIBUTION WIDTH-CV 13.5 % (11.5-14.5)
[2020-10-17 08:26] LABS: HEMATOCRIT 24.1 % (42.0-52.0); HEMOGLOBIN 7.9 g/dl (13.5-18.0); MEAN CORPUSCULAR HEMOGLOBIN 31 pg (27.0-31.0)
[2020-10-17 08:45] LABS: CALCIUM 7.7 mg/dL (8.4-10.2); CREATININE, serum 0.89 (0.66-1.25); POTASSIUM 3.7 mmol/L (3.4-5.0)
--- NOTE | 2020-10-17 10:42 | NUR ---
Patient more alert today. Still confused. is in the room asking questions, they are being answered. Patient's garcia is draining well. Patient has not had any complaints this morning.
--- NOTE | 2020-10-17 15:11 | NUR ---
social worker health services met with patient to discuss discharge plan. Rosibel ([phone]) at [facility]. Patient lives at home in [place] with his . Patient drifts in and out of sleep and answers most questions. states on a "normal" day he is able to do most things on his own but with this "set back" she has been doing everything for him. At home the patient uses an electric wheelchair to get around. PCP is listed as Dr. Webber, however Rosibel has a strong desire to switch physicians. Expresses strong feelings against Dr. Webber and wishes that we do not talk to him about anything. Utilize [facility] for perscriptions and has no trouble affording medications. Worker educated patient and about the recommendation from OT that SNF would be best after discharge. say's "absolutely not. He will not be going to a facility. That is not even an option". Worker asked if they would be willing to have HH come in. Rosibel states they just got done with [facility] and is open to having them come back. *Discharge plan: Home [facility]/ *
--- NOTE | 2020-10-17 15:46 | NUR ---
Worker contacts Bita with [facility]. He has not been discharged from them so he can go back home with them and resume. Bita is concerned because of recent non compliance with the HH teams.
--- NOTE | 2020-10-17 18:15 | NUR ---
Orthostatic pressures completed. All stayed within the 80s/40s. Provider notified, 1,000mL bolus of LR given as ordered. Pressure is up to 139/60. Patient is much more alert today as compared to yesterday. Tolerating all cares well. Vazquez is draining properly. has been with patient all day.
--- NOTE | 2020-10-17 22:27 | NUR ---
PT RESTING IN BED. EVENING MEDICATIONS GIVEN. PT DENIES ANY NEEDS AT THIS TIME, IS JUST EAGER TO HAVE A BOWEL MOVEMENT. CALL LIGHT WITHIN REACH. WILL CONTINUE TO MONITOR.
[2020-10-18 03:16] VITALS: BP 118/57; PULSE 81; TEMP 97.9
--- NOTE | 2020-10-18 05:21 | NUR ---
PT HAD SOME CONFUSION AT THIS TIME, AND WAS ATTEMPTING TO GET OUT OF BED. REORIENTED PT AND REPOSITIONED IN BED. BED ALARM ON. WILL CONTINUE TO MONITOR.
[2020-10-18 06:54] LABS: BASO % 0.3 % (0.0-2.0); EOS # 0.2 (0.0-0.7); EOS % 1.8 % (0-4.0); GRAN # 6.7 (1.4-6.5); GRAN % 77.3 % (42.2-75.2); LYMPH # 0.9 (1.2-3.4); LYMPH % 10.1 % (20.0-51.0); MEAN CELL VOLUME 97 fl (80.0-100.0); MEAN CORPUSCULAR HGB CONC 33 g/dl (33.0-37.0); MEAN PLATELET VOLUME 11.3 fl (7.4-10.4); MONO # 0.9 (0.1-0.6); PLATELET COUNT 162 K/mm3 (130-400); RED BLOOD COUNT 2.26 M/mm3 (4.20-5.60); REDCELL DISTRIBUTION WIDTH-CV 13.7 % (11.5-14.5)
[2020-10-18 06:56] LABS: HEMATOCRIT 21.8 % (42.0-52.0); HEMOGLOBIN 7.1 g/dl (13.5-18.0); MEAN CORPUSCULAR HEMOGLOBIN 31 pg (27.0-31.0)
[2020-10-18 07:09] LABS: CALCIUM 7.5 mg/dL (8.4-10.2); CREATININE, serum 0.86 (0.66-1.25); POTASSIUM 3.3 mmol/L (3.4-5.0)
--- NOTE | 2020-10-18 08:00 | NUR ---
Patient resting in bed, laying on the bench. Patient easily awakends with verbal command. Alert, denies pain and discomfort. IV CDI. Vazquez intact. Audible gurgling and has concerns about his breathing. Nurse informed the that the doctor will be notified. No further needs expressed. Call light within reach. Bed alarm on
[2020-10-18 08:13] VITALS: BP 124/51; PULSE 89; TEMP 98.5
[2020-10-18 12:19] VITALS: BP 123/47; PULSE 91; TEMP 98
--- NOTE | 2020-10-18 13:08 | NUR ---
SW met with and patient about additional care supports. Presented them with the options of Skilled care. reports that she wants thte patient to go to [facility] due to his parkinsons diagnosis. SW faxed Clinical notation and to [facility]. MAIN spoke with Jeny at [facility] about status Jeny reports that they do not have any beds available this weekend. Jeny reports that they may have a bed Tuesday10/20/2020. Jeny reports that if the patient is still at the hospital then they will review the PPW when a bed is available. MAIN spoke with and in room about statues and educated that [facility] does not have a bed. reports that she would like patient to stay until tuesday to go to [facility]. SW educated that it may not be possible. wanted to know if they could admit from the [facility]. SW asked this question with [facility]Jeny and she reported that it is not likely and posses other concerns. Educated that patient at this time is pending placement. Staff with Doctor about this concern. Reports that patient will stay until we find placement. refuses placement at any other facility. Educated on visitation policy as she requested information. Awaiting [facility] bed on Tuesday. Possible. NF>
--- NOTE | 2020-10-18 13:32 | NUR ---
SW met with patient again about [facility] not having any beds until later on. Educated patient about other options in the community again. Patient and requested that she has a phone number and address to the places to review them on their. Provided ppw.
[2020-10-18 14:34] LABS: HEMATOCRIT 27.3 % (42.0-52.0); HEMOGLOBIN 8.4 g/dl (13.5-18.0)
[2020-10-18 16:25] VITALS: BP 113/53; PULSE 72; TEMP 97.7
--- NOTE | 2020-10-18 16:27 | NUR ---
SW received call from [facility] and they have DECLINED. SW placed consult referral to the following agencies. SW also gave a list of all the SNFs in [place], [place], and [place] areas. reports that the patient needs to go somewhere she can visit. Referral sent to [facility] Fax [phone] [place] [phone] [facility] [phone] [facility] [phone] [phone] Wait[facility] on Screen Results. [facility] not taking any patients. [facility] has a bed tomorrow but only scheduled window and outside visitations. Educated on [facility] policy.
--- NOTE | 2020-10-18 17:48 | NUR ---
Patient has been sleeping most of the day, at the bedside most of the day as well. has concerns about how the patient sounds when breathing. Concerns brought to the doctors attention. Patient has had increased coughing r/t eating. Doctor aware as well. A&O. VSS. IV CDI, fluids infusing. Denies pain and discomfort. Patient positioned 90 degrees and instructed by and nurse to tuck in chin when swallowing. Call light within reach. Bed alarm on
[2020-10-18 20:09] VITALS: BP 109/56; PULSE 62; TEMP 97.6
--- NOTE | 2020-10-18 21:52 | NUR ---
PT RESTING IN BED. EVENING MEDICATIONS GIVEN. LUNGS AUSCULTATED WITH COARSE CRACKLES IN BILATERAL BASES. EDEMA NOTED TO UPPER EXTREMITIES. NS RUNNING AT 100ML/HR WAS STOPPED, WILL CONSULT DOCTOR ON IF WE SHOULD CONTINUE RUNNNING THIS OR DC IT. BLOOD PRESSURES HAVE BEEN STABLE. PT CONFUSED/DISORIENTED, PT WILL READ LOACTION AND DATE OFF OF WHITE BOARD. WILL CONTINUE TO MONITOR.
[2020-10-18 23:33] VITALS: BP 123/64; PULSE 56; TEMP 97.7
--- NOTE | 2020-10-19 00:11 | NUR ---
INSTRUCTED TO DC THE NS. PT ACTIVE IN BED AT THIS TIME, BED ALARM ON. WILL CONTINUE TO MONITOR.
[2020-10-19 04:20] VITALS: BP 134/61; PULSE 82; TEMP 98.2
--- NOTE | 2020-10-19 05:54 | NUR ---
PT DID NOT APPEAR TO GET MUCH SLEEP THROUGHOUT THE NIGHT. PT RESTING IN BED. WILL CONTINUE TO MONITOR.
[2020-10-19 07:47] VITALS: BP 112/47; PULSE 72; TEMP 98.9
--- NOTE | 2020-10-19 08:00 | NUR ---
Patient laying flat in bed, nurse raised the patients HOB to 30degrees. Patient did not wake up. Nurse observe periods of apnea while asleep. Nurse will notify the doctor. VSS. IV CDI. Vazquez dependent drainage, clear yellow urine. arrived at the bedside, patient is still a sleep. No further needs expressed. Call light within reach. Bed alarm on
[2020-10-19 09:17] LABS: MEAN CELL VOLUME 96 fl (80.0-100.0); MEAN CORPUSCULAR HGB CONC 32 g/dl (33.0-37.0); MEAN PLATELET VOLUME 11.2 fl (7.4-10.4); PLATELET COUNT 179 K/mm3 (130-400); RED BLOOD COUNT 2.42 M/mm3 (4.20-5.60); REDCELL DISTRIBUTION WIDTH-CV 13.8 % (11.5-14.5)
[2020-10-19 09:18] LABS: HEMATOCRIT 23.3 % (42.0-52.0); HEMOGLOBIN 7.5 g/dl (13.5-18.0); MEAN CORPUSCULAR HEMOGLOBIN 31 pg (27.0-31.0)
[2020-10-19 11:48] VITALS: BP 109/57; PULSE 68; TEMP 98.7
[2020-10-19 16:09] LABS: HEMATOCRIT 24.3 % (42.0-52.0)
[2020-10-19 16:31] VITALS: BP 141/93; PULSE 84; TEMP 98.2
--- NOTE | 2020-10-19 17:48 | NUR ---
Patient slept most of the shift, has been at the bedside throughout the shift. Patient unable to take anything PO in the beginning of the shift r/t not being alert. VSS 2L NC O2. IV CDI. Vazquez intact, dependent drainage, clear yellow. Patient was awake and alert to eat dinner and ate 100%. Denies pain and discomfort. Call light within reach. Bed alarm on
[2020-10-19 19:25] VITALS: BP 105/56; PULSE 72; TEMP 98.7
--- NOTE | 2020-10-19 20:20 | NUR ---
Patient is resting in bed, alert and oriented x 3, reports no pain, nausea or vomiting. Nasal canula at 2l 02. Tele in place. Urine is clear yellow in garcia catheter. Meds provided. No further needs at this time. Call light within reach.
[2020-10-19 23:14] VITALS: BP 119/60; PULSE 77; TEMP 98.1
[2020-10-20 03:49] VITALS: BP 120/64; PULSE 73; TEMP 98.3
--- NOTE | 2020-10-20 06:48 | NUR ---
Patient has had a calm night. He has been anwering correctly and following comands. Alert, oriented x 3, no complains of pain, nausea or vomiting. No requirements of insulin. Shift report will be given to dayshift nurse.
[2020-10-20 07:28] LABS: BASO % 0.1 % (0.0-2.0); EOS # 0.3 (0.0-0.7); EOS % 4.1 % (0-4.0); GRAN # 5.3 (1.4-6.5); GRAN % 68.6 % (42.2-75.2); LYMPH # 1.2 (1.2-3.4); LYMPH % 15.5 % (20.0-51.0); MEAN CELL VOLUME 97 fl (80.0-100.0); MEAN CORPUSCULAR HGB CONC 32 g/dl (33.0-37.0); MEAN PLATELET VOLUME 10.9 fl (7.4-10.4); MONO # 0.9 (0.1-0.6); MONO % 11.2 % (1.7-9.3); PLATELET COUNT 190 K/mm3 (130-400); RED BLOOD COUNT 2.49 M/mm3 (4.20-5.60); REDCELL DISTRIBUTION WIDTH-CV 13.6 % (11.5-14.5)
[2020-10-20 07:30] LABS: HEMATOCRIT 24.2 % (42.0-52.0); HEMOGLOBIN 7.8 g/dl (13.5-18.0); MEAN CORPUSCULAR HEMOGLOBIN 31 pg (27.0-31.0)
[2020-10-20 07:41] LABS: CALCIUM 7.7 mg/dL (8.4-10.2); CREATININE, serum 0.9 (0.66-1.25)
[2020-10-20 08:00] VITALS: BP 124/62; PULSE 77; TEMP 98.3
[2020-10-20 11:40] VITALS: BP 129/67; PULSE 79; TEMP 98.3
--- NOTE | 2020-10-20 12:23 | NUR ---
Pt has been very sleepy this am. He did not eat much of his breakfast. He did get up to have a bowel movement. He was a max 2 assist and was not able to get back in to bed. Bowel movement was loose and appeared brown in color, but when flushed in the toilet, it was red tinged. Pt has been in room most of the morning. She was upset as she stated she has asked for days for something to be done as he has a cough and it took until yesterday and now he cannot leave today. She was also upset with this as she stated [facility] has a bed for him and what if they don't save it. Educated her that he is not medically ready to be discharged at this time. visited with pt for quite some time regarding this. New orders wrote at this time
--- NOTE | 2020-10-20 13:34 | NUR ---
[facility] states [facility] can accept patient to skilled care upon discharge.
[2020-10-20 14:43] LABS: COLLECTION METHOD CLEAN CATCH
[2020-10-20 15:03] LABS: MUCOUS Present /lpf; PH 8 (5-8); SQUAMOUS EPITHELIAL None Seen /hpf; URINE APPEARANCE Clear; URINE BACTERIA None Seen /hpf; URINE BILIRUBIN Negative (NEGATIVE); URINE BLOOD 2+ (NEGATIVE); URINE COLOR Yellow; URINE GLUCOSE Negative (NEGATIVE); URINE KETONE Trace (NEGATIVE); URINE LEUKOCYTE ESTERASE Negative (NEGATIVE); URINE NITRATE Negative (NEGATIVE); URINE PROTEIN(semi-quant) 1+ (NEGATIVE); URINE RBC 20-50 /hpf; URINE UROBILINOGEN >=4.0 mg/dL (NEGATIVE)
--- NOTE | 2020-10-20 16:22 | NUR ---
Dr Robles updated as far as pt have bloody stool today. Lab just in to draw labs for a recheck H&H
[2020-10-20 17:00] LABS: HEMATOCRIT 25.2 % (42.0-52.0)
--- NOTE | 2020-10-20 18:08 | NUR ---
Pts was under the understanding that he was going to have a colonoscopy tomorrow. This was not mentioned to me by the physician nor do I see anything in the notes/orders. Informed her and the pt about this, no new questions on this.
[2020-10-20 18:20] VITALS: BP 120/86; PULSE 77; TEMP 98.4
[2020-10-20 21:20] VITALS: BP 133/68; PULSE 84; TEMP 98.5
--- NOTE | 2020-10-20 22:32 | NUR ---
PT RESTING IN BED. EVENING MEDICATIONS GIVEN. LUNG AUSCULTATED WITH COARSE CRACKLES TO BILATEREAL BASES. EDEMA NOT TO BUE. PT DENIES ANY NEEDS AT THIS TIME. BED ALARMS ON. WILL CONTINUE TO MONITOR.
[2020-10-21 00:26] VITALS: BP 110/61; PULSE 80; TEMP 98.4
[2020-10-21 04:40] VITALS: BP 128/60; PULSE 85; TEMP 98
--- NOTE | 2020-10-21 06:25 | NUR ---
PT HAD A RESTFUL NIGHT. WILL CONTINUE TO MONITOR.
--- NOTE | 2020-10-21 07:22 | NUR ---
Bedside shift report complete. Pt. resting in bed, denies needs at this time. Call light in reach, bed alarm on.
[2020-10-21 07:23] LABS: BASO % 0.2 % (0.0-2.0); EOS # 0.3 (0.0-0.7); EOS % 3.4 % (0-4.0); GRAN % 77.3 % (42.2-75.2); LYMPH # 0.7 (1.2-3.4); LYMPH % 8.1 % (20.0-51.0); MEAN CELL VOLUME 96 fl (80.0-100.0); MEAN CORPUSCULAR HGB CONC 32 g/dl (33.0-37.0); MEAN PLATELET VOLUME 11.1 fl (7.4-10.4); MONO % 10.7 % (1.7-9.3); PLATELET COUNT 206 K/mm3 (130-400); RED BLOOD COUNT 2.59 M/mm3 (4.20-5.60); REDCELL DISTRIBUTION WIDTH-CV 13.4 % (11.5-14.5)
[2020-10-21 07:24] LABS: HEMATOCRIT 24.8 % (42.0-52.0); MEAN CORPUSCULAR HEMOGLOBIN 31 pg (27.0-31.0)
[2020-10-21 07:50] VITALS: BP 129/66; PULSE 88; TEMP 98.7
[2020-10-21 07:57] LABS: CALCIUM 7.7 mg/dL (8.4-10.2); CREATININE, serum 0.9 (0.66-1.25); POTASSIUM 3.7 mmol/L (3.4-5.0)
[2020-10-21] MEDS ORDERED: FLOMAX 0.40.4 MG/CAP PO (09:35)
[2020-10-21] MEDS ORDERED: ZITHROMAX Z PA250 MG PO (09:37)
--- NOTE | 2020-10-21 09:52 | NUR ---
[facility] accepts patient to skilled care at [facility] today and arranged facility wheel chair van transport today at 10:15am. Worker met with patient and spouse and advised of transfer plans. Worker faxed orders to [facility].
--- NOTE | 2020-10-21 11:44 | NUR ---
Pt. discharged to [facility]. Pt. picked up by [facility] staff. IV has been removed, all appropriate paperwork has been provided, family aware.
== END 2020-10-21 11:45 | DRG 377 ==
LOC: COL.ER 23:49 → MEDICAL 10-14 01:49
PROVIDERS: Internal Medicine; Internal Medicine Gastroenterology; Personal Emergency Response Attendant; Physician Assistant; Student in an Organized Health Care Education/Training Program; ADMIT Student in an Organized Health Care Education/Training Program
PROC: 0DJ08ZZ Inspection of Upper Intestinal Tract, Via Natural or Artificial Opening Endoscopic (ICD-10-PCS; principal; 2020-10-15 07:00)
PROC: 0DJD8ZZ Inspection of Lower Intestinal Tract, Via Natural or Artificial Opening Endoscopic (ICD-10-PCS; 2020-10-15 07:00)
DX: K57.31 Diverticulosis of large intestine without perforation or abscess with bleeding (principal); G93.41 Metabolic encephalopathy; J18.9 Pneumonia, unspecified organism; J90 Pleural effusion, not elsewhere classified; I95.9 Hypotension, unspecified; E86.1 Hypovolemia; I48.0 Paroxysmal atrial fibrillation; I25.10 Atherosclerotic heart disease of native coronary artery without angina pectoris; E78.5 Hyperlipidemia, unspecified; J44.9 Chronic obstructive pulmonary disease, unspecified; K21.9 Gastro-esophageal reflux disease without esophagitis; F32.9 Major depressive disorder, single episode, unspecified; F41.9 Anxiety disorder, unspecified; G20 Parkinson's disease; G47.33 Obstructive sleep apnea (adult) (pediatric); R33.9 Retention of urine, unspecified; R53.81 Other malaise; R41.0 Disorientation, unspecified; K59.00 Constipation, unspecified; R09.02 Hypoxemia; E11.9 Type 2 diabetes mellitus without complications; N40.0 Benign prostatic hyperplasia without lower urinary tract symptoms; Z86.718 Personal history of other venous thrombosis and embolism; Z86.711 Personal history of pulmonary embolism; Z79.02 Long term (current) use of antithrombotics/antiplatelets; Z86.73 Personal history of transient ischemic attack (TIA), and cerebral infarction without residual deficits
CPT/HCPCS: 99223-AI; 99232-AI; 99233-AI; 99239; A4314; C9113; G0378; J0696; J2060; J2405; J2704; J2765; J7030; J7040; J7120; P9016

== ENCOUNTER 2020-10-30 08:42 | Emergency (ER) | payer MEDICARE, BC ==
[~2020-10-30] VITALS: Ht 172.7 cm; Wt 81.8 kg
[~2020-10-30 08:42] MED LIST changes: +DITROPAN 5MG TAB5 MG PO; +FLOMAX 0.40.4 MG/CAP PO; +VITAMIND3 5000 PO; +XANAX 1MG1 MG PO; +ZITHROMAX Z PA250 MG PO
[2020-10-30 08:55] VITALS: TEMP 98.9
[2020-10-30 09:28] VITALS: BP 130/77; PULSE 78
== END 2020-10-30 09:36 | disposition home or self-care (01) ==
LOC: COL.ER 08:42
DX: R33.9 Retention of urine, unspecified (principal); T83.84XA Pain due to genitourinary prosthetic devices, implants and grafts, initial encounter; G20 Parkinson's disease; E11.9 Type 2 diabetes mellitus without complications; I25.10 Atherosclerotic heart disease of native coronary artery without angina pectoris; E78.5 Hyperlipidemia, unspecified; J44.9 Chronic obstructive pulmonary disease, unspecified; F41.9 Anxiety disorder, unspecified; F32.9 Major depressive disorder, single episode, unspecified; Z86.73 Personal history of transient ischemic attack (TIA), and cerebral infarction without residual deficits; Z79.02 Long term (current) use of antithrombotics/antiplatelets; Z79.899 Other long term (current) drug therapy

== ENCOUNTER 2020-11-26 13:30 | Outpatient (RCR) | payer MEDICARE, BC | END 2021-02-03 | disposition home or self-care (01) | LOC: WSPT | DX: G20 Parkinson's disease (principal) ==

== ENCOUNTER 2021-04-06 12:58 | Outpatient (RCR) | payer MEDICARE, BC | END 2021-04-20 | disposition home or self-care (01) | LOC: WSPT | DX: G20 Parkinson's disease (principal); I63.12 Cerebral infarction due to embolism of basilar artery; R26.89 Other abnormalities of gait and mobility ==

== ENCOUNTER 2021-04-16 14:15 | Outpatient (RCR) | payer MEDICARE, BC | END 2021-04-20 | disposition still patient (30) | LOC: WSPT | DX: G20 Parkinson's disease (principal); I63.12 Cerebral infarction due to embolism of basilar artery ==

== ENCOUNTER 2021-04-22 12:43 | Outpatient (RCR) | payer MEDICARE, BC | END 2021-05-21 | disposition home or self-care (01) | LOC: WSPT | DX: G20 Parkinson's disease (principal); I63.12 Cerebral infarction due to embolism of basilar artery; R26.89 Other abnormalities of gait and mobility ==

== ENCOUNTER 2021-07-19 19:09 | Emergency (ER) | payer MEDICARE, BC ==
[~2021-07-19] VITALS: Ht 177.8 cm; Wt 72.7 kg
[2021-07-19 21:40] LABS: COLLECTION METHOD CLEAN CATCH
[2021-07-19 21:46] LABS: PH 5 (5-8); SQUAMOUS EPITHELIAL None Seen /hpf (0-10); URINE APPEARANCE Clear (CLEAR/HAZY); URINE BACTERIA None Seen /hpf (NONE SEEN); URINE BILIRUBIN Negative (NEGATIVE); URINE BLOOD Negative (NEGATIVE); URINE COLOR Amber (YELLOW); URINE GLUCOSE Negative (NEGATIVE); URINE KETONE Trace (NEGATIVE); URINE LEUKOCYTE ESTERASE Negative (NEGATIVE); URINE NITRATE Negative (NEGATIVE); URINE PROTEIN(semi-quant) Negative (NEGATIVE); URINE UROBILINOGEN Negative (NEGATIVE)
[2021-07-20 00:26] LABS: BASO # 0.1 K/mm3 (0.0-0.2); BASO % 0.7 % (0.0-2.0); EOS # 0.3 K/mm3 (0.0-0.7); EOS % 4.4 % (0.0-4.0); GRAN # 4.9 K/mm3 (1.4-6.5); GRAN % 68.9 % (42.2-75.2); HEMATOCRIT 41.2 % (42.0-52.0); HEMOGLOBIN 13.6 g/dl (13.5-18.0); LYMPH # 1.2 K/mm3 (1.2-3.4); LYMPH % 16.4 % (20.0-51.0); MEAN CELL VOLUME 92 fl (80.0-100.0); MEAN CORPUSCULAR HEMOGLOBIN 30 pg (27-31); MEAN CORPUSCULAR HGB CONC 33 g/dl (33.0-37.0); MEAN PLATELET VOLUME 11.3 fl (7.4-10.4); MONO # 0.7 K/mm3 (0.1-0.6); MONO % 9.3 % (1.7-9.3); PLATELET COUNT 211 K/mm3 (130-400); RED BLOOD COUNT 4.47 M/mm3 (4.20-5.60); REDCELL DISTRIBUTION WIDTH-CV 13.1 % (11.5-14.5)
[2021-07-20 00:44] LABS: ALBUMIN 3.5 gm/dL (3.4-4.8); BILIRUBIN,TOTAL 0.6 mg/dL (0.2-1.2); C-REACTIVE PROTEIN 0.3 mg/dL (0.00-0.50); CREATININE, serum 1.14 mg/dL (0.72-1.25); POTASSIUM 3.8 mmol/L (3.5-4.5); TOTAL PROTEIN 6.5 gm/dL (6.2-8.1)
[2021-07-20] MEDS ORDERED: AMOXICILLIN 8751 TAB PO (02:24)
[2021-07-20 03:00] VITALS: BP 119/74; PULSE 78
== END 2021-07-20 03:00 | disposition home or self-care (01) ==
LOC: COL.ER 19:09
PROVIDERS: Nurse Practitioner
DX: K59.00 Constipation, unspecified (principal); N41.0 Acute prostatitis
CPT/HCPCS: J7030; Q9967

== ENCOUNTER 2021-08-12 15:50 | Emergency (ER) | payer MEDICARE, BC ==
[~2021-08-12] VITALS: Ht 175.3 cm; Wt 73.6 kg
[~2021-08-12 15:50] MED LIST changes: +AMOXICILLIN 8751 TAB PO
[2021-08-12 15:52] VITALS: TEMP 97.5
[2021-08-12 16:15] LABS: BASO % 0.5 % (0.0-2.0); EOS # 0.1 K/mm3 (0.0-0.7); EOS % 1.9 % (0.0-4.0); GRAN # 5.9 K/mm3 (1.4-6.5); HEMATOCRIT 37.4 % (42.0-52.0); HEMOGLOBIN 12.3 g/dl (13.5-18.0); LYMPH # 0.8 K/mm3 (1.2-3.4); LYMPH % 10.9 % (20.0-51.0); MEAN CELL VOLUME 92 fl (80.0-100.0); MEAN CORPUSCULAR HEMOGLOBIN 30 pg (27-31); MEAN CORPUSCULAR HGB CONC 33 g/dl (33.0-37.0); MEAN PLATELET VOLUME 11.1 fl (7.4-10.4); MONO # 0.6 K/mm3 (0.1-0.6); MONO % 7.4 % (1.7-9.3); PLATELET COUNT 191 K/mm3 (130-400); RED BLOOD COUNT 4.07 M/mm3 (4.20-5.60); REDCELL DISTRIBUTION WIDTH-CV 13.2 % (11.5-14.5)
[2021-08-12 16:32] LABS: ALBUMIN 3.2 gm/dL (3.4-4.8); ALKALINE PHOSPHATASE 79 U/L (40-150); ANION GAP 12 mmol/L (7-16); AST,SGOT 12 U/L (5-34); BILIRUBIN,TOTAL 0.6 mg/dL (0.2-1.2); BLOOD UREA NITROGEN 16 mg/dL (8-26); CALCIUM 8.6 mg/dL (8.4-10.2); CARBON DIOXIDE 24 mmol/L (23-31); CHLORIDE 103 mmol/L (98-107); CREATININE, serum 0.97 mg/dL (0.72-1.25); GLUCOSE 135 mg/dL (70-99); POTASSIUM 3.6 mmol/L (3.5-4.5); SODIUM 139 mmol/L (136-145); TOTAL PROTEIN 5.8 gm/dL (6.2-8.1)
[2021-08-12 16:34] LABS: ALANINE AMINOTRANSFERASE < 6 U/L (0-55); LIPASE < 4 U/L (8-78)
[2021-08-12 16:46] LABS: TROPONIN-I < 0.010 ng/mL (0.00-0.033)
[2021-08-12 18:13] LABS: COLLECTION METHOD CLEAN CATCH
[2021-08-12 18:22] LABS: MUCOUS Present (NOT PRESENT); PH 6 (5-8); SQUAMOUS EPITHELIAL 0-2 /hpf (0-10); URINE APPEARANCE Clear (CLEAR/HAZY); URINE BACTERIA None Seen /hpf (NONE SEEN); URINE BILIRUBIN Negative (NEGATIVE); URINE BLOOD Negative (NEGATIVE); URINE COLOR Amber (YELLOW); URINE GLUCOSE Negative (NEGATIVE); URINE KETONE Trace (NEGATIVE); URINE LEUKOCYTE ESTERASE Negative (NEGATIVE); URINE NITRATE Negative (NEGATIVE); URINE PROTEIN(semi-quant) Negative (NEGATIVE); URINE RBC 0-2 /hpf (0-2); URINE UROBILINOGEN Negative (NEGATIVE)
[2021-08-12 20:09] VITALS: BP 136/74; PULSE 76
== END 2021-08-12 20:09 | disposition home or self-care (01) ==
LOC: COL.ER 15:50
PROVIDERS: Emergency Medicine
DX: G20 Parkinson's disease (principal); R55 Syncope and collapse
CPT/HCPCS: Q9967

== ENCOUNTER 2021-09-15 09:45 | Outpatient (RCR) | payer MEDICARE, BC | END 2021-09-20 | disposition still patient (30) | LOC: WSPT | DX: G20 Parkinson's disease (principal); I69.30 Unspecified sequelae of cerebral infarction; R13.10 Dysphagia, unspecified ==

== ENCOUNTER 2021-10-13 11:00 | Outpatient (RCR) | payer MEDICARE, BC | END 2021-10-21 | disposition home or self-care (01) | LOC: WSST | DX: R13.10 Dysphagia, unspecified (principal) ==

== ENCOUNTER 2021-10-20 12:45 | Outpatient (RCR) | payer MEDICARE, BC | END 2021-10-21 | disposition home or self-care (01) | LOC: WSPT | DX: G20 Parkinson's disease (principal); I69.398 Other sequelae of cerebral infarction ==

== ENCOUNTER → 2021-10-22 | Outpatient (CLI) | payer MEDICARE, BC | LOC: COL.RAD 15:00 | DX: R13.10 Dysphagia, unspecified (principal) ==

== ENCOUNTER 2021-12-16 13:30 | Outpatient (RCR) | payer MEDICARE, BC ==
[2021-12-21] MEDS ORDERED: LEVAQUIN 5500 MG/TA1 PO (20:10)
[2021-12-23] MEDS ORDERED: BACTRIM DS 8001 TAB PO (11:59)
== END 2021-12-21 | disposition home or self-care (01) ==
LOC: WSPT
DX: G20 Parkinson's disease (principal); I69.391 Dysphagia following cerebral infarction; R13.10 Dysphagia, unspecified

== ENCOUNTER 2021-12-29 16:51 | Emergency (ER) | payer MEDICARE, BC ==
[~2021-12-29] VITALS: Ht 180.3 cm; Wt 66.8 kg
[~2021-12-29 16:51] MED LIST changes: +BACTRIM DS 8001 TAB PO; +LEVAQUIN 5500 MG/TA1 PO
[2021-12-29 17:18] VITALS: BP 127/83; TEMP 97.5
[2021-12-29 18:57] VITALS: PULSE 82
== END 2021-12-29 18:58 | disposition home or self-care (01) ==
LOC: COL.ER 16:51
DX: R21 Rash and other nonspecific skin eruption (principal); T36.8X5A Adverse effect of other systemic antibiotics, initial encounter

== ENCOUNTER 2022-01-02 17:43 | Emergency (ER) | payer MEDICARE, BC ==
[~2022-01-02] VITALS: Ht 175.3 cm; Wt 66.8 kg
[2022-01-02 18:26] LABS: BASO # 0.1 K/mm3 (0.0-0.2); BASO % 0.9 % (0.0-2.0); EOS # 0.9 K/mm3 (0.0-0.7); EOS % 9.4 % (0.0-4.0); GRAN # 5.7 K/mm3 (1.4-6.5); GRAN % 62.8 % (42.2-75.2); HEMATOCRIT 42.2 % (42.0-52.0); HEMOGLOBIN 14.1 g/dl (13.5-18.0); LYMPH # 1.5 K/mm3 (1.2-3.4); LYMPH % 16.8 % (20.0-51.0); MEAN CELL VOLUME 91 fl (80.0-100.0); MEAN CORPUSCULAR HEMOGLOBIN 31 pg (27-31); MEAN CORPUSCULAR HGB CONC 33 g/dl (33.0-37.0); MEAN PLATELET VOLUME 10.2 fl (7.4-10.4); MONO # 0.9 K/mm3 (0.1-0.6); MONO % 9.8 % (1.7-9.3); PLATELET COUNT 248 K/mm3 (130-400); RED BLOOD COUNT 4.62 M/mm3 (4.20-5.60); REDCELL DISTRIBUTION WIDTH-CV 13.2 % (11.5-14.5)
[2022-01-02 18:44] LABS: ALBUMIN 3.6 gm/dL (3.4-4.8); ALKALINE PHOSPHATASE 90 U/L (40-150); ANION GAP 12 mmol/L (7-16); AST,SGOT 33 U/L (5-34); BILIRUBIN,TOTAL 0.7 mg/dL (0.2-1.2); BLOOD UREA NITROGEN 21 mg/dL (8-26); CALCIUM 9.4 mg/dL (8.4-10.2); CARBON DIOXIDE 24 mmol/L (23-31); CHLORIDE 105 mmol/L (98-107); CREATININE, serum 1.32 mg/dL (0.72-1.25); GLUCOSE 88 mg/dL (70-99); POTASSIUM 3.6 mmol/L (3.5-4.5); SODIUM 141 mmol/L (136-145); TOTAL PROTEIN 6.7 gm/dL (6.2-8.1)
[2022-01-02 18:45] LABS: ALANINE AMINOTRANSFERASE < 6 U/L (0-55)
[2022-01-02 19:00] LABS: COLLECTION METHOD CLEAN CATCH
[2022-01-02 19:35] LABS: URINE APPEARANCE Clear (CLEAR/HAZY); URINE BLOOD Negative (NEGATIVE); URINE COLOR Yellow (YELLOW); URINE GLUCOSE Negative (NEGATIVE); URINE KETONE TRACE (NEGATIVE); URINE NITRATE Negative (NEGATIVE); URINE PROTEIN(semi-quant) Negative (NEGATIVE); URINE UROBILINOGEN 0.2 E.U/dL (0.2-1.0)
[2022-01-02 19:43] LABS: MUCOUS Present (NOT PRESENT); SQUAMOUS EPITHELIAL None Seen /hpf (0-10); URINE BACTERIA None Seen /hpf (NONE SEEN)
[2022-01-02 20:42] VITALS: BP 142/76; PULSE 87; TEMP 97.8
== END 2022-01-02 20:42 | disposition home or self-care (01) ==
LOC: COL.ER 17:43
PROVIDERS: Physician Assistant
DX: R33.9 Retention of urine, unspecified (principal); R29.6 Repeated falls; R79.89 Other specified abnormal findings of blood chemistry; Z28.310 Unvaccinated for COVID-19
CPT/HCPCS: J7030

== ENCOUNTER 2022-04-14 14:30 | Outpatient (RCR) | payer MEDICARE ==
[~2022-04-14 14:30] MED LIST changes: +ATIVAN 1MG T1 MG/TAB PO; +COMTAN 200MG T200 MG PO; +KEPPRA 500MG500 MG PO; +MACROBID 1100 MG/CAP PO; +NEURONTIN300 MG/CAP PO; +PROSCAR 5MG5 MG PO; +PROTONIX 40MG T40 MG PO; +REQUIP 0.5MG0.5 MG PO; +SINEMET CR1 UDTAB.S1 PO
== END 2022-04-20 | disposition home or self-care (01) ==
LOC: WSST
DX: R47.1 Dysarthria and anarthria (principal); R13.10 Dysphagia, unspecified; G20 Parkinson's disease

== ENCOUNTER 2022-05-18 14:30 | Outpatient (RCR) | payer MEDICARE | END 2022-05-21 | disposition home or self-care (01) | LOC: WSST | DX: R13.10 Dysphagia, unspecified (principal); R47.1 Dysarthria and anarthria; G20 Parkinson's disease ==

== ENCOUNTER 2022-06-14 20:04 | Inpatient (IN) | payer MEDICARE, BC ==
[2022-06-14] VITALS (124 sets, daily range): BP systolic 76–145; BP diastolic 51–103; PULSE 72–86; O2SAT 86–100
[~2022-06-14] VITALS: Ht 175.3 cm; Wt 77.1 kg
[2022-06-14] MEDS ORDERED: ASPIRIN 81M81 MG/TA2 PO (20:15)
[2022-06-14 20:43] LABS: BASO % 0.6 % (0.0-2.0); EOS # 0.2 K/mm3 (0.0-0.7); EOS % 2.9 % (0.0-4.0); GRAN # 5.2 K/mm3 (1.4-6.5); GRAN % 72.3 % (42.2-75.2); HEMATOCRIT 38.8 % (42.0-52.0); HEMOGLOBIN 12.5 g/dl (13.5-18.0); LYMPH # 1.1 K/mm3 (1.2-3.4); LYMPH % 14.9 % (20.0-51.0); MEAN CELL VOLUME 96 fl (80.0-100.0); MEAN CORPUSCULAR HEMOGLOBIN 31 pg (27-31); MEAN CORPUSCULAR HGB CONC 32 g/dl (33.0-37.0); MEAN PLATELET VOLUME 10.7 fl (7.4-10.4); MONO # 0.7 K/mm3 (0.1-0.6); PLATELET COUNT 198 K/mm3 (130-400); RED BLOOD COUNT 4.03 M/mm3 (4.20-5.60); REDCELL DISTRIBUTION WIDTH-CV 12.7 % (11.5-14.5)
[2022-06-14 21:03] LABS: ALBUMIN 2.8 gm/dL (3.4-4.8); BILIRUBIN,TOTAL 0.5 mg/dL (0.2-1.2); CALCIUM 7.1 mg/dL (8.4-10.2); CREATININE, serum 0.93 mg/dL (0.72-1.25); TOTAL PROTEIN 5.2 gm/dL (6.2-8.1)
[2022-06-14 21:07] LABS: POTASSIUM 2.9 mmol/L (3.5-4.5)
--- NOTE | 2022-06-14 22:04 | NUR ---
PT INTUBATED AT 2127 IN ED. REMOVAL OF FOREIGN OBJECT/HOTDOG PIECE PT HAD CHOKED AND ASPIRATED ON.
[2022-06-14 22:45] LABS: ARTERIAL BLD GAS O2 SATURATION 96.6 % (92-100); ARTERIAL BLD GAS TCO2 CT 25.4; ARTERIAL BLOOD GAS BASE EXCESS -0.1 (-2-2); ARTERIAL BLOOD GAS HCO3 24.2 meq/L (22-26); ARTERIAL BLOOD GAS PCO2 38.4 mmHg (35-45); ARTERIAL BLOOD GAS PO2 88.7 mmHg (80-100); ARTERIAL BLOOD GAS pH 7.42 (7.35-7.45)
[2022-06-15] VITALS (1217 sets, daily range): BP systolic 61–157; BP diastolic 42–87; PULSE 59–95; TEMP 97.5–98.8; O2SAT 90–100
--- NOTE | 2022-06-15 01:49 | NUR ---
LAVAGED AND SUCTIONED WITH 14 [place] OUT OF LINE CATHETER DUE TO RESISTANCE BEING MET WITH INLINE CATHETER. SMALL AMOUNT OF THICK YELLOW AND BROWN MUCOUS PLUG REMOVED.
[2022-06-15 04:08] LABS: ARTERIAL BLD GAS O2 SATURATION 98.7 % (92-100); ARTERIAL BLD GAS TCO2 CT 25.3; ARTERIAL BLOOD GAS BASE EXCESS -0.8 (-2-2); ARTERIAL BLOOD GAS PCO2 40.6 mmHg (35-45); ARTERIAL BLOOD GAS pH 7.39 (7.35-7.45)
[2022-06-15 04:09] LABS: ARTERIAL BLOOD GAS PO2 151.7 mmHg (80-100)
[2022-06-15 04:53] LABS: BASO # 0.1 K/mm3 (0.0-0.2); BASO % 0.4 % (0.0-2.0); EOS # 0.1 K/mm3 (0.0-0.7); EOS % 0.7 % (0.0-4.0); GRAN # 10.2 K/mm3 (1.4-6.5); GRAN % 88.4 % (42.2-75.2); HEMATOCRIT 40.4 % (42.0-52.0); HEMOGLOBIN 13.5 g/dl (13.5-18.0); LYMPH # 0.7 K/mm3 (1.2-3.4); LYMPH % 5.7 % (20.0-51.0); MEAN CELL VOLUME 94 fl (80.0-100.0); MEAN CORPUSCULAR HEMOGLOBIN 31 pg (27-31); MEAN CORPUSCULAR HGB CONC 33 g/dl (33.0-37.0); MEAN PLATELET VOLUME 10.5 fl (7.4-10.4); MONO # 0.5 K/mm3 (0.1-0.6); MONO % 4.6 % (1.7-9.3); PLATELET COUNT 213 K/mm3 (130-400); RED BLOOD COUNT 4.32 M/mm3 (4.20-5.60); REDCELL DISTRIBUTION WIDTH-CV 12.6 % (11.5-14.5)
[2022-06-15 05:23] LABS: ALBUMIN 3.1 gm/dL (3.4-4.8); BILIRUBIN,TOTAL 0.8 mg/dL (0.2-1.2); CALCIUM 8.6 mg/dL (8.4-10.2); CREATININE, serum 1.04 mg/dL (0.72-1.25); POTASSIUM 4.8 mmol/L (3.5-4.5); TOTAL PROTEIN 5.9 gm/dL (6.2-8.1)
--- NOTE | 2022-06-15 09:24 | NUR ---
Bronch initiated at 0934 and was completed at 0938. Tolerated the procedure well, however did become hypotensive after completion of the bronch. Dr. Hylton aware and levo titrated up per orders.
--- NOTE | 2022-06-15 11:39 | NUR ---
Patient on ventilator.
--- NOTE | 2022-06-15 14:29 | NUR ---
hog worker met with patient's spouse, Rosibel #[phone], to discuss discharge planning. Patient is currently on a ventilator. Spouse states that they will attempt to wean patient off the ventilator tomorrow. Spouse stated that patient had just received his dentures and wanted to eat something that he hadn't eaten in a long time, which was a hotdog. Rosibel states that patient is currently established with Dannielle Poole, outpatient speech therapist and wishes to continue with her care. Rosibel states that she will not desire prison facility upon discharge, however we did discuss the possibility of home health. Rosibel is aware that if they utilize home health services, they won't be able to continue to see Dannielle and is unsure that they want to go in that direction. Worker advised that we will continue to follow and assist with their desired discharge plan. Worker confirmed with , that we have the most current advance directives on file, appointing her as durable power of nurseryperson for health care. Patient's primary care provider is Dr Santiago. Patient has private duty care through [facility] Tuesday and for hands on care for activities of daily living. Per spouse request, worker contacted Kinjal with [facility] and confirmed that patient's worker can add bathing assistance to her care routine. Worker notified spouse of this. Case management will continue to follow and assist with securing a safe and desired discharge plan for patient and spouse.
--- NOTE | 2022-06-15 17:25 | NUR ---
Patient on sedation vacation; opened eyes to his name and squeezed this nurses hands on command. Tolerating decreased sedation levels at this time. Will continue to monitor.
[2022-06-16] VITALS (970 sets, daily range): BP systolic 93–132; BP diastolic 47–76; PULSE 55–87; TEMP 97.8–99.4; O2SAT 76–100
[2022-06-16 04:59] LABS: BASO # 0.1 K/mm3 (0.0-0.2); BASO % 0.4 % (0.0-2.0); EOS # 0.2 K/mm3 (0.0-0.7); EOS % 1.7 % (0.0-4.0); GRAN # 8.9 K/mm3 (1.4-6.5); GRAN % 77.1 % (42.2-75.2); LYMPH # 1.4 K/mm3 (1.2-3.4); LYMPH % 12.4 % (20.0-51.0); MEAN CELL VOLUME 94 fl (80.0-100.0); MEAN CORPUSCULAR HGB CONC 33 g/dl (33.0-37.0); MEAN PLATELET VOLUME 10.5 fl (7.4-10.4); MONO # 0.9 K/mm3 (0.1-0.6); PLATELET COUNT 169 K/mm3 (130-400); RED BLOOD COUNT 3.53 M/mm3 (4.20-5.60); REDCELL DISTRIBUTION WIDTH-CV 13.1 % (11.5-14.5)
[2022-06-16 05:06] LABS: ARTERIAL BLD GAS O2 SATURATION 98.2 % (92-100); ARTERIAL BLD GAS TCO2 CT 23.8; ARTERIAL BLOOD GAS HCO3 22.8 meq/L (22-26); ARTERIAL BLOOD GAS PCO2 34.7 mmHg (35-45); ARTERIAL BLOOD GAS PO2 117.2 mmHg (80-100); ARTERIAL BLOOD GAS pH 7.44 (7.35-7.45)
[2022-06-16 05:14] LABS: HEMATOCRIT 33.3 % (42.0-52.0); MEAN CORPUSCULAR HEMOGLOBIN 31 pg (27-31)
[2022-06-16 05:26] LABS: CALCIUM 8.3 mg/dL (8.4-10.2); CREATININE, serum 0.95 mg/dL (0.72-1.25); POTASSIUM 3.9 mmol/L (3.5-4.5)
--- NOTE | 2022-06-16 08:22 | NUR ---
Patient extubated at this time. Extubated to room air with 0xygen saturations 94-99%. Patient alert and able to follow commands from staff. Tolerating extubation well at thsi time.
--- NOTE | 2022-06-16 09:02 | NUR ---
PT EXTUBATED WITHOUT INCIDENT. PT ON ROOM AIR AT TIME OF EXTUBATION. NO DISTRESS, STRIDOR OR ADVENTITIOUS LUNG SOUNDS.
--- NOTE | 2022-06-16 16:15 | NUR ---
Resting comfortably in bed; denies any complaints at this time. 02 saturations maintaing mid 90's on RA. Call light within reach.
--- NOTE | 2022-06-16 21:00 | NUR ---
2100 report to Lyndsey NICHOLS on medical. Pt transfering to room 313
--- NOTE | 2022-06-16 21:40 | NUR ---
Patient arrived to room 313 via wheelchair from ICU. Assessment complete. A&Ox3. VS stable. Denies pain/nausea/shortness of breath. VS stable. LR@75ml/hr to right subclavian central line. Vazquez cath with clear yellow urine. SCDs applied. Family remains at bedside. Call light in reach. Will monitor.
--- NOTE | 2022-06-16 21:43 | NUR ---
2123 Pt transfered to room 313 via wheelchair. This nurse met PCT at bedside assisted in transfering pt to bed and resuming LR and Zosyn. Lyndsey medical nurse at bedside at this time. No further questions were needed.
[2022-06-17 03:55] VITALS: BP 93/48; PULSE 102; TEMP 98.5
--- NOTE | 2022-06-17 05:43 | NUR ---
Patient had an uneventful night. VS remained stable. Denied pain/nausea/shortness of breath. Vazquez with clear yellow urine. Denies current questions/concerns. Call light in reach. Will monitor.
[2022-06-17 07:50] VITALS: BP 99/47; PULSE 60; TEMP 98.5
[2022-06-17 11:42] VITALS: BP 118/57; PULSE 68; TEMP 98.2
--- NOTE | 2022-06-17 14:11 | NUR ---
The hospitalist notified MAIN that the patient may be able to discharge tomorrow. MAIN attempted to contact the patient's , Rosibel, to review discharge plan. SW left her a voicemail.
[2022-06-17 15:27] VITALS: BP 111/65; PULSE 60; TEMP 98.9
--- NOTE | 2022-06-17 17:23 | NUR ---
PATIENT IS AXOX4. NOW ON PUREED DIET AND TAKES PILLS WHOLE WITH WATER. NEEDS ASSISTANCE TO PUT PILLS IN THE MOUTH. ST AGREES AFTER EVAL TO STAY ON PUREED. KRISHNAN CATHETER IS STILL PATENT AND HAVING OUTPUT. VSS. DOES NOT COMPLAIN OF ANY PAIN. PATIENT SITTING UP IN BED WITH WITH. BED ALARM ON. X3BED RAILS UP.
[2022-06-17 20:17] VITALS: BP 107/55; PULSE 72; TEMP 99.2
--- NOTE | 2022-06-17 23:02 | NUR ---
Patient assessed around 2100. stated that he was not answering questions appropriately and was slow to respond. Worried about speech as well. This nurse asked questions, patient able answer all questions appropriately, except thought it was the beginning of June. Patient stated that he did not hear his asking questions, and that was why he did not answer her. Neuro checks WNL for patient. Continues on IV ABX per orders. Voices no questions, needs, or concerns at this time. In bed with call light within reach. High fall risk precautions in place.
[2022-06-17 23:51] VITALS: BP 100/50; PULSE 58; TEMP 98.5
[2022-06-18 00:15] VITALS: BP_SYST 100
[2022-06-18 00:59] VITALS: BP_SYST 100
[2022-06-18 03:59] VITALS: BP 105/59; PULSE 54; TEMP 98.5
[2022-06-18 04:28] VITALS: BP_SYST 105
--- NOTE | 2022-06-18 05:50 | NUR ---
Patient has denied having pain and discomfort. Was put on oxygen at 1 L/min via NC, as his SPO2 was 88-89% on room air while sleeping. Increased to 91-93%. Continues on IV fluids and ABX per orders. remains at bedside. Voices no questions, needs, or concerns at this time. In bed with call light within reach. High fall risk precautions in place. Bed alarm on.
[2022-06-18 07:27] VITALS: BP 111/57; PULSE 58; TEMP 98.8
[2022-06-18 08:02] LABS: BASO % 0.7 % (0.0-2.0); EOS # 0.2 K/mm3 (0.0-0.7); GRAN # 4.3 K/mm3 (1.4-6.5); GRAN % 70.9 % (42.2-75.2); LYMPH # 0.9 K/mm3 (1.2-3.4); LYMPH % 14.5 % (20.0-51.0); MEAN CELL VOLUME 94 fl (80.0-100.0); MEAN CORPUSCULAR HGB CONC 33 g/dl (33.0-37.0); MEAN PLATELET VOLUME 11.5 fl (7.4-10.4); MONO # 0.6 K/mm3 (0.1-0.6); MONO % 9.7 % (1.7-9.3); PLATELET COUNT 146 K/mm3 (130-400); RED BLOOD COUNT 3.16 M/mm3 (4.20-5.60); REDCELL DISTRIBUTION WIDTH-CV 12.7 % (11.5-14.5)
[2022-06-18 08:12] LABS: CALCIUM 8.1 mg/dL (8.4-10.2); CREATININE, serum 0.87 mg/dL (0.72-1.25); HEMATOCRIT 29.6 % (42.0-52.0); HEMOGLOBIN 9.9 g/dl (13.5-18.0); MEAN CORPUSCULAR HEMOGLOBIN 31 pg (27-31); POTASSIUM 3.6 mmol/L (3.5-4.5)
[2022-06-18] MEDS ORDERED: CLEOCIN HCL300 MG PO (08:42)
[2022-06-18] MEDS ORDERED: PROAIR HFA0.09 MG/AC IH (08:45)
--- NOTE | 2022-06-18 08:55 | NUR ---
The clinical team is ready to discharge the patient today, 06/18. MAIN contacted the patient's , Rosibel, to review discharge plan and to follow up on preference for home health vs outpatient therapy. Rosibel confirms plan to return home. She states that she has decided to go with home health and that the patient has had services from [facility] in the past. She would like to go through [facility] again. MAIN read the IM form outloud to Rosibel over the phone. Rosibel verbalized understanding and agreement to discharge today. She gave MAIN approval to sign the form on her behalf. MAIN attempted to contact Spencer at [facility]. MAIN left her a voicemail and faxed over the referral.
--- NOTE | 2022-06-18 11:14 | NUR ---
PT NON AMBULATORY.QUALIFIES FOR O2 @ NOC BUT DOES NOT WANT IT. HAS CPAP @ HOME THAT HE DOESN'T USE AND IS NOT INTERESTED IN HOME O2.
--- NOTE | 2022-06-18 13:37 | NUR ---
Spencer, at [facility], reports that they are able to accept the patient. An exercise oximetry was ordered. RT notified SW that the patient qualifies for oxygen only at night. RT states that she informed the patient of this, but the patient states he will not use it. SW met with the patient and his to address the nocturnal oxygen and setting it up. The patient's shares that they have a CPAP from [facility], but the patient refuses to use it. [facility] then got him nocturnal oxygen set up, but the patient also refused to use it, so [facility] came and picked up the oxygen. The patient continues to refuse the nocturnal oxygen and the patient's confirms he will not use it. They declined for this SW to re-establish the patient with nocturnal oxygen. PA updated. The patient is to discharge back home with his today, 06/18, with home health services for nursing home/PT/OT/ST from [facility]. SW notified and faxed orders to Spencer at [facility]. No additional needs at this time.
== END 2022-06-18 13:55 | disposition home health service (06) | DRG 163 ==
LOC: COL.ER 20:04 → ICU 20:49 → MEDICAL 06-16 20:54
PROVIDERS: Personal Emergency Response Attendant; Physician Assistant; Student in an Organized Health Care Education/Training Program; ADMIT Student in an Organized Health Care Education/Training Program
PROC: 02HV33Z Insertion of Infusion Device into Superior Vena Cava, Percutaneous Approach (ICD-10-PCS; principal; 2022-06-14)
PROC: 5A1945Z Respiratory Ventilation, 24-96 Consecutive Hours (ICD-10-PCS; 2022-06-14)
PROC: 0BH17EZ Insertion of Endotracheal Airway into Trachea, Via Natural or Artificial Opening (ICD-10-PCS; 2022-06-14)
PROC: 0BCD8ZZ Extirpation of Matter from Right Middle Lung Lobe, Via Natural or Artificial Opening Endoscopic (ICD-10-PCS; 2022-06-15)
PROC: 0BCF8ZZ Extirpation of Matter from Right Lower Lung Lobe, Via Natural or Artificial Opening Endoscopic (ICD-10-PCS; 2022-06-15)
PROC: 0BC98ZZ Extirpation of Matter from Lingula Bronchus, Via Natural or Artificial Opening Endoscopic (ICD-10-PCS; 2022-06-15)
PROC: 0BCB8ZZ Extirpation of Matter from Left Lower Lobe Bronchus, Via Natural or Artificial Opening Endoscopic (ICD-10-PCS; 2022-06-15)
DX: T17.528A Food in bronchus causing other injury, initial encounter (principal); J69.0 Pneumonitis due to inhalation of food and vomit; J96.01 Acute respiratory failure with hypoxia; J98.11 Atelectasis; G91.2 (Idiopathic) normal pressure hydrocephalus; E44.0 Moderate protein-calorie malnutrition; E87.20 Acidosis, unspecified; Z20.822 Contact with and (suspected) exposure to COVID-19; G20 Parkinson's disease; I95.9 Hypotension, unspecified; E78.5 Hyperlipidemia, unspecified; R13.10 Dysphagia, unspecified; I48.0 Paroxysmal atrial fibrillation; B96.89 Other specified bacterial agents as the cause of diseases classified elsewhere; K21.9 Gastro-esophageal reflux disease without esophagitis; F32.A Depression, unspecified; I69.322 Dysarthria following cerebral infarction; I69.391 Dysphagia following cerebral infarction; I69.320 Aphasia following cerebral infarction; Z88.2 Allergy status to sulfonamides; Z88.1 Allergy status to other antibiotic agents; Z79.899 Other long term (current) drug therapy; Z79.82 Long term (current) use of aspirin; Z79.01 Long term (current) use of anticoagulants; Z99.3 Dependence on wheelchair; Z68.20 Body mass index [BMI] 20.0-20.9, adult
CPT/HCPCS: C1751; J1650; J1956; J2370; J2543; J2704; J3010; J3475; J3480; J7040; J7060; J7120

== ENCOUNTER 2023-04-01 19:39 | Emergency (ER) | payer MEDICARE, BC ==
[~2023-04-01] VITALS: Ht 175.3 cm; Wt 75.0 kg
[~2023-04-01 19:39] MED LIST changes: +CEPHALEXIN500 M1 PO; +CLEOCIN HCL300 MG PO; +LEVAQUIN 750MG750 M1 PO; +PROAIR HFA0.09 MG/AC IH
[2023-04-01 19:46] VITALS: TEMP 98.2
[2023-04-01 20:24] VITALS: BP 159/93; PULSE 84
== END 2023-04-01 20:30 | disposition home or self-care (01) ==
LOC: COL.ER 19:39
DX: T83.038A Leakage of other urinary catheter, initial encounter (principal); Y82.9 Unspecified medical devices associated with adverse incidents

== ENCOUNTER 2023-08-08 14:00 | Outpatient (RCR) | payer MEDICARE, BC | END 2023-08-21 | disposition home or self-care (01) | LOC: WSST | DX: R13.12 Dysphagia, oropharyngeal phase (principal) ==

== ENCOUNTER 2023-08-27 16:52 | Emergency (ER) | payer MEDICARE, BC ==
[~2023-08-27] VITALS: Ht 177.8 cm; Wt 72.7 kg
[2023-08-27 16:56] VITALS: TEMP 97.1
[2023-08-27 18:33] LABS: COLLECTION METHOD IN
[2023-08-27 18:38] LABS: BASO % 0.7 % (0.0-2.0); EOS # 0.3 K/mm3 (0.0-0.7); EOS % 5.4 % (0.0-4.0); GRAN # 3.7 K/mm3 (1.4-6.5); GRAN % 59.9 % (42.2-75.2); HEMATOCRIT 41.8 % (42.0-52.0); HEMOGLOBIN 13.4 g/dl (13.5-18.0); LYMPH # 1.4 K/mm3 (1.2-3.4); LYMPH % 22.7 % (20.0-51.0); MEAN CELL VOLUME 88 fl (80.0-100.0); MEAN CORPUSCULAR HEMOGLOBIN 28 pg (27-31); MEAN CORPUSCULAR HGB CONC 32 g/dl (33.0-37.0); MEAN PLATELET VOLUME 10.7 fl (7.4-10.4); MONO # 0.7 K/mm3 (0.1-0.6); PLATELET COUNT 224 K/mm3 (130-400); RED BLOOD COUNT 4.73 M/mm3 (4.20-5.60); REDCELL DISTRIBUTION WIDTH-CV 13.1 % (11.5-14.5)
[2023-08-27 18:48] LABS: URINE APPEARANCE TURBID (CLEAR/HAZY); URINE BLOOD NEGATIVE (NEGATIVE); URINE COLOR YELLOW (YELLOW); URINE GLUCOSE NEGATIVE (NEGATIVE); URINE KETONE TRACE (NEGATIVE); URINE NITRATE NEGATIVE (NEGATIVE); URINE PROTEIN(semi-quant) 2+ (NEGATIVE)
[2023-08-27 18:55] LABS: ALBUMIN 3.2 g/dL (3.4-4.8); ALKALINE PHOSPHATASE 117 U/L (40-150); ANION GAP 10 mmol/L (7-16); AST,SGOT 11 U/L (5-34); BILIRUBIN,TOTAL 0.6 mg/dL (0.2-1.2); BLOOD UREA NITROGEN 14 mg/dL (8-26); CALCIUM 9.1 mg/dL (8.4-10.2); CHLORIDE 103 mEq/L (98-107); CREATININE, serum 1.42 mg/dL (0.72-1.25); GLUCOSE 96 mg/dL (70-99); POTASSIUM 3.6 mEq/L (3.5-4.5); SODIUM 140 mEq/L (136-145); TOTAL PROTEIN 6.4 g/dl (6.2-8.1)
[2023-08-27 19:01] LABS: ALANINE AMINOTRANSFERASE < 6 U/L (0-55); URINE WBC 20-50 /hpf (0-2)
[2023-08-27 19:02] LABS: URINE BACTERIA MANY /hpf (NONE SEEN)
[2023-08-27] MEDS ORDERED: CEFTIN500 MG PO ×2 (19:14→19:45)
[2023-08-27] MEDS ORDERED: cefTRIAXone 1 G in Water For Injection,Sterile 10 ML IV ONE (19:15)
[2023-08-27 19:50] VITALS: BP 179/94; PULSE 62
== END 2023-08-27 19:50 | disposition home or self-care (01) ==
LOC: COL.ER 16:52
PROVIDERS: Nurse Practitioner Primary Care
DX: N39.0 Urinary tract infection, site not specified (principal); Z96.0 Presence of urogenital implants; Z88.2 Allergy status to sulfonamides
CPT/HCPCS: J0696

== ENCOUNTER 2023-08-29 16:35 | Outpatient (RCR) | payer MEDICARE, BC ==
[~2023-08-29 16:35] MED LIST changes: +CEFTIN500 MG PO
== END 2023-09-21 | disposition home or self-care (01) ==
LOC: WSST
DX: R13.19 Other dysphagia (principal); T17.900S Unspecified foreign body in respiratory tract, part unspecified causing asphyxiation, sequela

== ENCOUNTER 2023-09-28 20:49 | Inpatient (IN) | payer MEDICARE, BC ==
[~2023-09-28] VITALS: Ht 175.3 cm; Wt 74.1 kg
[2023-09-28] MEDS ORDERED: NS 500 ML IV ONE ×2 (21:15→22:15)
[2023-09-28 21:16] LABS: BASO % 0.5 % (0.0-2.0); EOS # 0.2 K/mm3 (0.0-0.7); EOS % 2.2 % (0.0-4.0); GRAN # 6.8 K/mm3 (1.4-6.5); GRAN % 76.9 % (42.2-75.2); HEMOGLOBIN 14.9 g/dl (13.5-18.0); LYMPH # 1.1 K/mm3 (1.2-3.4); LYMPH % 12.7 % (20.0-51.0); MEAN CELL VOLUME 87 fl (80.0-100.0); MEAN CORPUSCULAR HEMOGLOBIN 29 pg (27-31); MEAN CORPUSCULAR HGB CONC 33 g/dl (33.0-37.0); MEAN PLATELET VOLUME 10.8 fl (7.4-10.4); MONO # 0.7 K/mm3 (0.1-0.6); MONO % 7.5 % (1.7-9.3); PLATELET COUNT 251 K/mm3 (130-400); RED BLOOD COUNT 5.18 M/mm3 (4.20-5.60); REDCELL DISTRIBUTION WIDTH-CV 12.7 % (11.5-14.5)
[2023-09-28 21:25] LABS: INR 1.2 (0.8-3.0)
[2023-09-28 21:30] LABS: ALBUMIN 3.5 g/dL (3.4-4.8); BILIRUBIN,TOTAL 0.9 mg/dL (0.2-1.2); CALCIUM 9.5 mg/dL (8.4-10.2); CREATININE, serum 1.28 mg/dL (0.72-1.25); TOTAL PROTEIN 7.5 g/dl (6.2-8.1)
[2023-09-28 21:50] LABS: TROPONIN-I 0.01 ng/mL (0.00-0.033); TSH w REFLEX 3.136 uIU/mL (0.350-4.940)
[2023-09-28 22:11] LABS: COLLECTION METHOD IN
[2023-09-28 22:21] LABS: URINE APPEARANCE CLOUDY (CLEAR/HAZY); URINE BLOOD 2+ (NEGATIVE); URINE COLOR YELLOW (YELLOW); URINE GLUCOSE NEGATIVE (NEGATIVE); URINE KETONE 2+ (NEGATIVE); URINE NITRATE POSITIVE (NEGATIVE); URINE PROTEIN(semi-quant) 2+ (BEGATIVE)
[2023-09-28 22:22] LABS: MUCOUS PRESENT (NOT PRESENT); URINE BACTERIA MODERATE /hpf (NONE SEEN)
[2023-09-28] MEDS ORDERED: cefTRIAXone 1 G in Water For Injection,Sterile 10 ML IV ONE (22:45)
[2023-09-29] VITALS (9 sets, daily range): BP systolic 125–180; BP diastolic 72–99; PULSE 57–85; TEMP 97.4–98.3
--- NOTE | 2023-09-29 01:37 | NUR ---
REPORT RECIEVED FROM SHERRI NICHOLS IN ED AT THIS TIME.
[2023-09-29] MEDS ORDERED: levETIRAcetam 500 MG in Syringe 1 EACH IV ONE (01:45)
--- NOTE | 2023-09-29 01:54 | NUR ---
MALE PATIENT ARRIVED TO ROOM #313 VIA STRETCHER FROM ER. PATIENT ASSISTED TO BED WITH SLIDE BOARD. PATIENT IN GREEN GOWN. SUPRAPUBIC CATH INTACT, PATENT, AND DRAINING MATTHEW URINE. INTIAL INTAKE AND INTIAL ASSESSMENT COMPLETED. PATIENT CHANGED INTO YELLOW GOWN, YELLOW SOCKS, AND FALL RISK ARMBAND PLACED ON ARM. PATIENT HAD LARGE DRIED BOWEL MOVEMENT. SHAZIA CARE PROVIDED. MEPILEX PLACED ON COCCYX. PURPLISH BLANCHABLE AREA NOTED TO RIGHT BUTTOCK. REDNESS ALSO NOTED TO COCCYX. SKIN TEARS NOTED TO LEFT ELBOW. ONE MEASURING 2X1 CM AND THE SECOND ONE MEASURING .5X.25 CM, BOTH OVAL IN SHAPE. AQUACEL FOAM PLACED OVER SKIN TEARS. PATIENT TOLERATED WELL. BRUSING NOTED TO BILATERAL LOWER ARMS. SCRATCHES NOTED TO TRUNK. INT TO LEFT AC INTACT. PATIENT VERBALIZED UNDERSTANDING OF CALL LIGHT AND BED CONTROLS. BED IN LOW POSITION WITH WHEELS LOCKED WITH RAILS UP X3 AND CALL LIGHT WITHIN REACH. BED ALARM ON.
[2023-09-29] MEDS ORDERED: LR 1,000 ML IV SCH (02:30)
[2023-09-29] MEDS ORDERED: Atorvastatin 40 MG TAB PO SCH (02:30)
--- NOTE | 2023-09-29 02:30 | NUR ---
ATTEMPTED MED REC BUT FORGOT TO BRING MED LIST BACK TO HOSPITAL WHEN SHE CAME BACK. STATED SHE WOULD BRING TOMORROW ALONG WITH ADVANCED DIRECTIVE. STATED THAT SHE GETS THE MEDICATIONS FROM [facility] [address].
[2023-09-29] MEDS ORDERED: Gadoterate 15 ML VIAL IV ONE (08:07)
[2023-09-29] MEDS ORDERED: levETIRAcetam 500 MG TAB PO SCH (09:00)
[2023-09-29] MEDS ORDERED: Pantoprazole 40 MG in NS 10 ML IV SCH (09:00)
--- NOTE | 2023-09-29 09:25 | NUR ---
PATIENT BACK FROM MRI AT APPROX 0900. PATIENT IS ALERT, BUT NOT COMPLETELY ORIENTED. ASKS THIS NURSE IF THEY "WASHED HIS BRAIN OUT." THIS RN EXPLAINED TO PATIENT THE MRI WAS JUST A PICTURE OF THE BRAIN. THIS RN ASSISTED ANOTHER RN WITH BED BATH. SUPRAPUBIC CATHETER CDI. BLANCHABLE DISCOLORATION OF COCCYX IS COVERED WITH MIPLEX DRSG. CDI. LEFT ELBOW COVERED WITH AQUACEL DRSG. DENIES PAIN OR DISCOMFORT. SITTING UP WATCHING TV. FALL PREC IN PLACE. CALL LIGHT WITHIN REACH. WILL MONITOR
--- NOTE | 2023-09-29 13:34 | NUR ---
THIS RN OBSERVED PATIENT'S (DPOA) SLURRING WORDS AND ASKING FOR HELP BECAUSE SHE DOESN'T KNOW HOW TO WORK HER PHONE. PER SPEECH, PATIENT MUST REMAIN NPO D/T ASPIRATION RISK. IN ROOM TRYING TO GIVE PATIENT FOOD. THIS RN ADVISED THAT PATIENT CANNOT EAT D/T ASPIRATION RISK. SOCIAL WORK, CASE MGMT, HOUSE SUP, AND GAS STATION SUPERVISOR NOTIFIED. WILL MONITOR
--- NOTE | 2023-09-29 15:05 | NUR ---
CONT TO TRY AND FEED PATIENT. THIS RN ADVISED ABOUT NPO NPO STATUS.
--- NOTE | 2023-09-29 16:13 | NUR ---
inventory worker notes pt is not oriented and has Dementia at baseline. MAIN called pt's , Rosibel who is also CB4O-HC on file at [phone] and left voicemails. MAIN received notification that pt's Tajzft-vz-Pis, Lois Winchester [phone] wanted to speak with social work therapist. MAIN called her back to inquire about her request. She is aware on her own accord that pt is in the hospital and informs MAIN that she (Lois/DANIEL) has been looking into correction placement for both pt and his , Rosibel. DANIEL is requesting assistance with this and states that pt cannot properly be cared for at home due to her daughter's own medical issues. MAIN did not verify or disclose any information. MAIN asked DANIEL to have her daughter call this social work therapist. She reports she will do so. DANIEL states she lives in [place] and they have been in communication with the correction there ([facility] [place]) and in [place] for pt and his . MAIN later saw pt's arrive. MAIN met with to discuss discharge planning. appears unkempt as evidenced by unbrushed hair, uncleanly clothes, and having items strewn about. She confirmed they live together in [place]. She states pt sees Dr. Lambert for PCP needs and obtains medications from [facility] with no issues. She states she is DPOA-HC and SW verified this on file. She reports pt is a full assist with ADLS and uses an eletric wheelchair for DME. She reports that she provides all cares for him. MAIN discussed PT/OT reccomendations of SNF and pt's altered mental status. She reports this is baseline and she can assist him at home. remains adamant to SW that he will not go to a SNF. She then tries to have pt sit up. After many tries, they is not successful. MAIN advised pt is not able to assist her in this and there on concerns of his safety and being managed at home. begins to reason with SW and pt. She had questions on his discharge and medical status. SW assured her she can have the hospitalist discuss with her since she was not present. MAIN advised pt will likely stay in the hospital a few days and will need a safe discharge plan. After explaining to PT/OT's report she became agreeable. MAIN provided Medicare.gov list and explained 3 in [place] and one in [place]. reports she has discussed respite care with [place] and wanted this for pt and herself. SW advised it would be for pt's rehab need. appeared confused and could not recall things as she kept referring to [place] as "[facility]" where pt will go. She was agreeable to MAIN sending referrals to [facility], [facility], [facility], and [facility]. SW discussed if pt is ready for discharge over the weekend, only [facility] could accept. She was made aware of this. She went on to show SW the issues with pt's phone and the loud blaring sound it made. She could not work the phone. informed MAIN they had [facility] and pt had a "bowel movement and they were offended so never came back." MAIN states she will look into this for them to see if he was discharged. MAIN called Spencer with [facility] who reports they have had pt since September 2019 and he was discharge June 2023. They report having witnessed as a "binge drinker" and she would not answer the door for visits or her phone. Pt required x2 assist with bathing and this was often missed due to . Spencer reports pt "fully depends on someone else for ADLS" and notes remained adamant that pt would not go to a correction. MAIN was informed by SIMONE Pierce that was at the nursing station displaying trouble walking, bending over randomly, and was looking for items that were not there. RN was going to call security due to concerns and behavior. MAIN spoke with MAIN Thurston at Dr. Lambert's office who is familiar with pt and . She reports pt had [facility] then [facility], but was discharged 07/22/23 due to home conditions. APS was involved in recent months. MAIN Thurston states had a back procedure and was interested in respite and is in her 60s. She does not have an updated DPOA-HC on file. MAIN spoke with JANICE Montano, Director Reyna, and Security regarding and her impairment. It was discussed with that she cannot drive home. Initially, she was agreeable to call an Uber. She continued to display erratic behaviors and attempted to feed pt despite NPO status. SW and Director called 's mother, Lois who was agreeable to come from [place] to cloth picker due to staff concerns. continued to wait at nursing station and refused to wait in room. She requested to sit in her car. Security escorted out to wait for her mother. MAIN made APS report #[id number] due to 's concerning behavior/impairment and inability to care for pt. MAIN was informed [facility] cannot accept as he left AMA from them. MAIN left voicemails to [facility] and [facility]. Discharge Plan: SNF
--- NOTE | 2023-09-29 16:54 | NUR ---
wash worker met with patient and spouse, along with Charmaine (Instructional Coach) and healthcare social worker, Bo. This worker advised to the , that we did not feel she was safe to drive home and she verbalized agreement to not driving home, rather getting an uber. Bo had later conversations with the spouse and spouse's mother agreed to pick up worker the spouse.
--- NOTE | 2023-09-29 18:59 | NUR ---
PATIENT RESTING IN BED WITH EYES CLOSED WITH TV ON WITH NO FAMILY PRESENT WITH NO ACUTE DISTRESS NOTED. PATIENT EASILY AROUSED. LR INFUSING INTO LEFT AC WITH NO COMPLICATIONS NOTED. TELEMETRY INTACT. SUPRAPUBIC CATH INTACT, PATENT, AND DRAINING CLEAR YELLOW URINE. BEDSIDE SHIFT REPORT COMPLETED WITH JOSEFA AT THIS TIME. PATIENT DENIES ANY NEEDS. BED IN LOW POSITION WITH WHEELS LOCKED WITH RAILS UP X3 AND CALL LIGHT WITHIN REACH. SEIZURE PRECAUTIONS IN PLACE. BED ALARM ON.
[2023-09-29] MEDS ORDERED: cefTRIAXone 1 G in Water For Injection,Sterile 10 ML IV SCH (21:00)
--- NOTE | 2023-09-29 21:53 | NUR ---
PATIENT RESTING IN BED SITTING UP WITH TV ON WITH NO FAMILY PRESENT WITH NO ACUTE DISTRESS NOTED. PATIENT ON ROOM AIR. LR INFUSING INTO LEFT AC WITH NO COMPLICATIONS NOTED. SUPRAPUBIC CATH INTACT, PATENT, AND DRAINING CLEAR YELLOW URINE. ASSESSMENT AND MEDICATION ADMINISTRATION COMPLETED AT THIS TIME. PATIENT TOLERATED WELL. NEW IV ACCESS OBTAINED IN RIGHT FOREARM TIMES ONE STICK. PATIENT DENIES ANY NEEDS. BED IN LOW POSITION WITH WHEELS LOCKED WITH RAILS UP X3 AND CALL LIGHT WITHIN REACH. SEIZURE PRECAUTIONS IN PLACE. BED ALARM ON.
[2023-09-30] VITALS (12 sets, daily range): BP systolic 115–161; BP diastolic 76–91; PULSE 69–82; TEMP 97.5–98.6
[2023-09-30 10:14] LABS: BASO % 0.4 % (0.0-2.0); EOS # 0.3 K/mm3 (0.0-0.7); EOS % 5.6 % (0.0-4.0); GRAN # 3.5 K/mm3 (1.4-6.5); GRAN % 63.7 % (42.2-75.2); LYMPH # 1.1 K/mm3 (1.2-3.4); LYMPH % 20.2 % (20.0-51.0); MEAN CELL VOLUME 87 fl (80.0-100.0); MEAN CORPUSCULAR HEMOGLOBIN 29 pg (27-31); MEAN CORPUSCULAR HGB CONC 33 g/dl (33.0-37.0); MEAN PLATELET VOLUME 11.3 fl (7.4-10.4); MONO # 0.6 K/mm3 (0.1-0.6); MONO % 9.9 % (1.7-9.3); PLATELET COUNT 194 K/mm3 (130-400); RED BLOOD COUNT 4.36 M/mm3 (4.20-5.60); REDCELL DISTRIBUTION WIDTH-CV 12.8 % (11.5-14.5)
[2023-09-30 10:25] LABS: HEMOGLOBIN 12.5 g/dl (13.5-18.0)
[2023-09-30 10:28] LABS: CALCIUM 8.5 mg/dL (8.4-10.2); CREATININE, serum 0.93 mg/dL (0.72-1.25); POTASSIUM 3.8 mEq/L (3.5-4.5)
[2023-09-30 10:30] LABS: CHOLESTEROL RISK RATIO 6.6
[2023-09-30] MEDS ORDERED: levETIRAcetam 500 MG in Syringe 1 EACH IV SCH (11:18)
[2023-09-30] MEDS ORDERED: NS 1,000 ML IV SCH (13:45)
--- NOTE | 2023-09-30 15:38 | NUR ---
clothing trades workers attended clinical rounding and was informed pt is nearing discharge. MAIN notes [facility] can accept pt. In the morning, [facility] has accepted pt. SW met with pt in his room who was able to ask SW questions and respond to her. He reports "disputing" going to a SNF and wanting to talk to his . SW attempted to re-direct him many times that he is not safe, not at his baseline, and not able to be properly cared for at home physically. Pt confirmed he usually can independent transfer and operate his electric wheelchair and now notes he cannot sit up. SW advised she had spoken with yesterday who ultimately was agreeable to a snf. SW and pt concluded the conversation as it was not making progress and pt states he will talk with his . MAIN was alerted by SIMONE Vicente that pt's had tried to call and speak with pt. MAIN called pt's at [phone] to assist her in speaking with pt. She answered this social media job titles (approx. 11:13am) reporting she was trying to reach pt and he was not talking. MAIN advised they attempted to assist them with the call. She reports she will arrive in 60-90min by Uber to see pt. MAIN updated her on the discharge plan that [facility] had accepted and pt could discharge tomorrow and [facility] could not accept until Tuesday. was adamant pt can not go to [facility] because it is "dirty." She went on to sound slurred in speech and upset. SW later disconnected the call. MAIN was informed by Jojo at [facility] that they received a call from pt's . They report that she was "argumentative and borderline beligerent" with staff. She later states that their OT staff has witnessed pt at home drunk in their driveway. They report sounded like she was "on something." Their DON arrived and spoke with MAIN and states now with no DPOA-HC (not impaired) they are not comfortable with signing documents and being DPOA-HC. O MAIN spoke with Director Reyna who suggests capacity eval for pt. This was completed and pt does not have capacity. SW received a call at 1:25pm from pt's reporting that she spoke to [facility] 10 minutes prior and she is coming to pick him up, sign "whatever papers," and take him to [facility]. MAIN had her on speaker with JANICE Kamini to hear nearby. SW informed her that [facility] is unable to accept pt and the only accepting facility is [facility] tomorrow. continues to state she has been on the phone so that is why she has not arrived, but she is going to call [facility] again, then Uber to the hospital. SW concluded the call. MAIN spoke with JANICE Suárez and Director Reyna Carranza who report pt needs to be put on a hold here. This was completed by Dr. Rawls and placed on chart with RN Cinthia informed. Director Orellana spoke with 's mother, Lois Winchester who will call , Rosibel and attempt to de-escalate her. Lois was informed pt cannot return to a home setting safely and placement is necessary. She states pt's sisters are on the DPOA-HC, one is and the other does not have any contact. MAIN spoke with ROXANA Atkins who is familiar with pt and intends to see him Tuesday. She will try to find other DPOA-HC/contact information. She reccomends placement as well and notes concerns with 's impairments and history of such. MAIN spoke with Michele, Chandni Sears who considers guardianship with pt's MIL as temporary guardian or contacting wifes PCP to see if her capacity was assessed. MAIN relayed this to Director Orellana. MAIN spoke with MAIN Thurston with Dr. Lambert's office who states they cannot say if she has capacity and that " has the perception that their care is adequate" and cannot provide anything else. MAIN spoke with Director Orellana who states guardianship will not be done and to assess if is agreeable to discharge tomorrow to [facility], if not he will stay until a hold until Tuesday. MAIN emailed updates to [facility] and [facility] (in the event theres a guardian.) Discharge Plan: [facility] tomorrow, if agrees
--- NOTE | 2023-09-30 17:35 | NUR ---
PATIENT IN THE ROOM. PATIENT IS NOT COMPLIANT WITH PATIENTS DIET. PATIENT IS ON A MIDLY THICK LIQUID AND PUREE DIET BUT PATIENT INSIST ON FEEDING PATIENT REGULAR LIQUIDS WHEN THIS NURSE NOT IN ROOM. PATIENT RE-EDUCATED PATIENT ON THE PATIENT DIET AND THE IMPORTANCE OF FOLLOWING THE DIET FOR PATIENT SAFETY.
--- NOTE | 2023-09-30 23:15 | NUR ---
PATIENT RESTING IN BED WITH EYES CLOSED WHEN RN ENTERED ROOM FOR ASSESSMENT. DENIES ANY PAIN AT THIS TIME AND REMAINS STABLE ON ROOM AIR. HE IS ANSWERING QUESTIONS APPROPRIATELY. SEIZURE PRECAUTIONS ARE IN PLACE DUE TO HISTORY OF SEIZURES. PATIENT HAS WELL MAINTAINED SUPRAPUBIC CATHETER. CALL LIGHT IS WITHIN REACH. BED IS LOCKED AND IN LOW POSITION.
[2023-10-01] VITALS (12 sets, daily range): BP systolic 122–171; BP diastolic 71–94; PULSE 60–71; TEMP 97.4–98.2
--- NOTE | 2023-10-01 00:15 | NUR ---
PATIENT'S WITH CALLED TO TALK WITH RN TAKING CARE OF HER . STATED SHE WOULD LIKE ME TO "START THE PAPERWORK" TO ARRANGE A TRANSFER TO HOSPITAL IN [place] TOMORROW INSTEAD OF BEING DISCHARGED TO "[facility]". RN ADVISED THAT I WOULD HAVE TO DISCUSS THIS WITH THE HOSPITALIST AND THAT I CANNOT PERSONALLY GET HIM TRANSFERRED BUT WILL REACH OUT TO HIS PROOVIDER. THEN STATED THAT SHE HAS ALREADY SPOKEN WITH [facility] AND THEY TOLD HER THAT THEY HAVE BEDS AND CAN TAKE HIM UNTIL [facility] CAN ACCEPT ON TUESDAY. WILL DISCUSS WITH HOSPITALIST.
[2023-10-01 06:38] LABS: BASO % 0.6 % (0.0-2.0); EOS # 0.3 K/mm3 (0.0-0.7); EOS % 3.9 % (0.0-4.0); GRAN # 4.7 K/mm3 (1.4-6.5); GRAN % 68.8 % (42.2-75.2); LYMPH # 1.2 K/mm3 (1.2-3.4); LYMPH % 17.1 % (20.0-51.0); MEAN CELL VOLUME 84 fl (80.0-100.0); MEAN CORPUSCULAR HEMOGLOBIN 28 pg (27-31); MEAN CORPUSCULAR HGB CONC 34 g/dl (33.0-37.0); MEAN PLATELET VOLUME 11.2 fl (7.4-10.4); MONO # 0.6 K/mm3 (0.1-0.6); MONO % 9.3 % (1.7-9.3); PLATELET COUNT 218 K/mm3 (130-400); RED BLOOD COUNT 4.24 M/mm3 (4.20-5.60)
[2023-10-01 06:44] LABS: HEMATOCRIT 35.8 % (42.0-52.0)
[2023-10-01 06:58] LABS: CALCIUM 8.3 mg/dL (8.4-10.2); CREATININE, serum 0.93 mg/dL (0.72-1.25); POTASSIUM 3.7 mEq/L (3.5-4.5)
--- NOTE | 2023-10-01 08:00 | NUR ---
PATIENTS CALLED THIS RN AND REQUESTED TO KNOW WHEN THE PATIENT WILL BE TRANSFERED TO [facility]. I INFORMED HER THAT FAR I AM AWARE, THE CURRENT PLAN IS FOR THIS PATIENT TO GO TO [facility] OR WAIT UNTIL TUESDAY TO DISCUSS OPTIONS. PATIENTS BECAME RUDE AND FUSTRATED THAT WE ARE NOT LILSTENTING TO WHAT SHE WANTS. I TRIED TO EXPLAIN THINGS FURTHER, HOWEVER SHE DID NOT SEEM OPEN TO DISCUSSION. PATIETNS TO BE HERE LATER.
--- NOTE | 2023-10-01 08:00 | NUR ---
PAITENT AWAKE AND ALERT ,SITTING UP IN BED. PATIENT LINEN AND GOWN CHANGED, REPOSITIONED AND NOW RESTING COMFORTABLE. CALL LIGHT WITHIN REACH, SP CATH DRAINING WITHOUT ISSUE, FALL PRECAUTIONS IN PLACE.
--- NOTE | 2023-10-01 10:00 | NUR ---
PATIENTS ARRIVED TO UNIT. SHE IS REQUESTING PATIENT BE GIVEN "REGULAR FOOD". MYSELF AND THE MILL FEEDER EXPLAINED THAT THE PATIENT WAS GIVEN A SPEECH EVALUATION FOR HIS SWALLOWING, AND IT WAS FOUND HE DOES BEST WITH PURE FOOD AND THICK LIQUIDS. PER THE "I KNOW THIS , HE HAS BEEN LIKE THIS FOR 3 YEARS, AT HOME HE DOES REGULAR FOOD HE DOESNT LIKE PURE. " WE INFORMED HER THAT WHILE THE PATIENT IS IN THE HOSPITAL WE WILL BE FOLLOWING THE EVALUAIOTN DONE BY SPEECH FOR HIS FOOD RECOMENDAITONS TO KEEP HIM SAFE AND AT A LOWER RISK FOR ASPIRATION. PATIENTS UPSET BY THIS AND STATED SHE WANTED SPEECH TO SEE HIM AGAIN. AGAIN WE INFORMED HER THAT HE HAS ALREADY COMPLETED A SPEECH THERAPY EVALUATION AND HE WILL REMAIN ON THE DIET THEY ORDERED.
--- NOTE | 2023-10-01 14:00 | NUR ---
THIS RN WAS SITTING AT THE DESK, WHEN I NOTICED THE PATIENT COUGHING. UPON ENTERING THE ROOM THE PATIENTS WAS FOUND AT HIS BEDSIDE WITH A CUP OF RED LIQUID. PATIENT HAD A LIGHT RED LIQUID ON THE SHEET AND ENRIQUE IN HIS BED. THIS RN SAT PATIENT UP HE CONTINUED TO HAVE A WET COUGH. I ASKED THE PATIENTS IF SHE GAVE HIM ANY THIN LIQUIDS ( SHE HAS ALREADY DONE THIS MULTIPLE TIMES) BECAUSE HE HAS NOT COUGHED AFTER ANY MEAL OR CRUSHED MEDS TODAY, AND SHE SAID "NO, ALL I HAVE IS MY WATER." WHEN I ASKED WHAT THE RED LIQUID IS SHE STATED ITS JUST HER "FRUIT PUNCH" THAT SHE ACCIDENTLY SPILLED. THIS RN AND A PCT WERE CLEANING UP THE PATIENT AND REPOSITIONING HIM, THE PATIENTS LEFT FOR HOME. PATIENT NOW SITITNG UP IN BED, RESTING, CALL LIGHT WITHIN REACH, FALL PRECAUTIONS IN PLACE.
[2023-10-01] MEDS ORDERED: amLODIPine 5 MG TAB PO ONE (17:45)
--- NOTE | 2023-10-01 17:46 | NUR ---
MD INFORMED PATIENT BP CURRENTLY 171/80. NO PRN ANITHYPERTENSIVES CURRENTL ORDERED. MD STATED HE WILL PLACE NEW ORDER.
--- NOTE | 2023-10-01 18:26 | NUR ---
PATINET IS AWAKE AND ALERT SITITNG UP IN BED. PAITENT ALMOST FULLY EATS EACH MEAL. PAIENT TOLERATING PURE DIET AND THICK LIQUID WITHOUT ANY ISSUE OR COMPLAINT. CALL LIGHT WIHTIN REACH. FALL PRECAUTIONS IN PLACE.
[2023-10-02] VITALS (11 sets, daily range): BP systolic 113–152; BP diastolic 64–91; PULSE 61–90; TEMP 97.6–98.3
[2023-10-02 07:17] LABS: CALCIUM 8.9 mg/dL (8.4-10.2); CREATININE, serum 1.08 mg/dL (0.72-1.25); POTASSIUM 4.1 mEq/L (3.5-4.5)
[2023-10-02 07:21] LABS: BASO % 0.4 % (0.0-2.0); EOS # 0.2 K/mm3 (0.0-0.7); EOS % 3.4 % (0.0-4.0); GRAN # 4.9 K/mm3 (1.4-6.5); GRAN % 73.3 % (42.2-75.2); HEMATOCRIT 39.3 % (42.0-52.0); HEMOGLOBIN 12.8 g/dl (13.5-18.0); LYMPH # 0.8 K/mm3 (1.2-3.4); LYMPH % 12.3 % (20.0-51.0); MEAN CELL VOLUME 88 fl (80.0-100.0); MEAN CORPUSCULAR HEMOGLOBIN 29 pg (27-31); MEAN CORPUSCULAR HGB CONC 33 g/dl (33.0-37.0); MEAN PLATELET VOLUME 11.5 fl (7.4-10.4); MONO # 0.7 K/mm3 (0.1-0.6); MONO % 10.3 % (1.7-9.3); PLATELET COUNT 213 K/mm3 (130-400); RED BLOOD COUNT 4.49 M/mm3 (4.20-5.60); REDCELL DISTRIBUTION WIDTH-CV 12.9 % (11.5-14.5)
--- NOTE | 2023-10-02 10:17 | NUR ---
MITUL IS ASLEEP, RESTING IN BED. PATIENT AROUSES EASILY TO NAME. CALL LIGHT WITHIN REACH. FALL PRECAUTIONS IN PLACE. BED ALARM ON.
--- NOTE | 2023-10-02 12:50 | NUR ---
updated clinicals sent via secure email to [facility].
[2023-10-02] MEDS ORDERED: Carboxymethylcellulose PF Ophth 0.4 ML DROPPERETTE OP SCH (21:00)
[2023-10-03] VITALS (8 sets, daily range): BP systolic 108–156; BP diastolic 72–84; PULSE 65–75; TEMP 97.4–98.3
--- NOTE | 2023-10-03 09:00 | NUR ---
SHIFT ASSESSMENT COMPLETE. VSS. PATIENT RESTING IN BED AWAKE. ALL MORNING MEDS GIVEN PER ORDERS. PATIENT DECLINED EATING BREAKFAST THIS AM. PATIENT STATES NO PAIN AT THIS TIME. PATIENT CURRENTLY HAS NO NEEDS. FALL PRECAUTIONS IN PLACE AND CALL LIGHT IN REACH.
--- NOTE | 2023-10-03 10:21 | NUR ---
transportation worker contacted Diane Rodriguez's son, Rodolfo and confirmed that Diane is . Rodolfo stated that Katarina Gutierrez is living and provided the following numbers for her: #[phone]/#[phone]. Worker contacted Katarina and advised that she was listed on the durable power of patent prosecution attorney and Katarina confirmed that she wants to help patient make discharge planning decisions. Katarina states that patient's spouse, Rosibel, has an alcohol addiction issue and she is very familiar with concerns that Rosibel being patient's caregiver. Katarina advised that she has made Adult Protective Services reports. Worker confirmed that Milly, with Adult protective services, stated there is an open case for patient as well as an open case for spouse at this time. The social work team will continue to work with Katarina regarding patient's discharge plan.
--- NOTE | 2023-10-03 10:26 | NUR ---
adult protective caseworker contacted Lakshmi with Adult Protective services and confirmed that there is an open case with patient as well as the spouse, Rosibel at this time. Milly stated she will see patient this afternoon and also make contacted with spouse, Rosibel. Worker provided Katarina's contact information to Milly.
[2023-10-03] MEDS ORDERED: ASPIRIN 81M81 MG/TA2 PO (11:37)
[2023-10-03] MEDS ORDERED: LIPITOR 40MG TA40 MG PO (11:37)
[2023-10-03] MEDS ORDERED: LEVAQUIN 750MG750 M1 PO (11:38)
[2023-10-03] MEDS ORDERED: XANAX 1MG1 MG PO (11:40)
[2023-10-03] MEDS ORDERED: levoFLOXacin 750 MG TAB PO ONE (11:45)
[2023-10-03] MEDS ORDERED: Fosfomycin 3 G PACKET PO ONE (11:45)
--- NOTE | 2023-10-03 14:51 | NUR ---
Master Black Belt contacted patient's sister, Katarina to review discharge plan and present IM. Katarina is agreeable to discharge to [facility] and provided verbal understanding of IM as signature. MAIN contacted Bruce at [facility] and faxed clinical updates and copy of [facility]-, which lists Katarina. Bruce stated they would accept today. MAIN contacted patient's , Rosibel who inquired again about [place]. MAIN contacted Jojo at and faxed clinical updates along with DPOA-HC. MAIN updated Jojo on Katarina, sister as decision maker. Jojo reviewed updates, however would not be able to accept today and they would want to do an in person screen tomorrow prior to making a decision on acceptance. MAIN advised Jojo that discharge was today and he would be released to another facility. MAIN spoke with Bruce at [facility] and transport time was set for 1330. MAIN contacted Rosibel, to provide update on discharge plan and transport time. Rosibel asked if patient could go to [facility] tomorrow and MAIN stated no, [facility] had not officially accepted. Rosibel then asked MAIN if [facility] was a good place for rehab. MAIN advised she could not recommend a facility but stated she could review ratings on the Medicare.gov website. MAIN sent discharge orders via secure email to Bruce at [facility].
--- NOTE | 2023-10-03 14:59 | NUR ---
PATIENT RECEIVED TRANSFER ORDER TO [facility] TODAY. PATIENT DRESSED AND TRANSPORTED AT 1448. REPORT CALLED TO NURSE RECEIVING PATIENT AT [facility].
== END 2023-10-03 14:48 | DRG 871 ==
LOC: COL.ER 20:49 → MEDICAL 23:37 → COL.ER 23:37 → MEDICAL 09-29 14:44
PROVIDERS: Family Medicine; Nurse Practitioner Family; ADMIT Internal Medicine
DX: A41.9 Sepsis, unspecified organism (principal); G93.41 Metabolic encephalopathy; E87.20 Acidosis, unspecified; F02.83 Dementia in other diseases classified elsewhere, unspecified severity, with mood disturbance; R63.4 Abnormal weight loss; K21.9 Gastro-esophageal reflux disease without esophagitis; E78.5 Hyperlipidemia, unspecified; I48.0 Paroxysmal atrial fibrillation; N18.31 Chronic kidney disease, stage 3a; G40.909 Epilepsy, unspecified, not intractable, without status epilepticus; Z20.822 Contact with and (suspected) exposure to COVID-19; R29.810 Facial weakness; R65.20 Severe sepsis without septic shock; H26.9 Unspecified cataract; G20.A1 Parkinson's disease without dyskinesia, without mention of fluctuations; Z88.2 Allergy status to sulfonamides; Z88.8 Allergy status to other drugs, medicaments and biological substances; Z87.19 Personal history of other diseases of the digestive system; I69.393 Ataxia following cerebral infarction; I69.322 Dysarthria following cerebral infarction; I69.320 Aphasia following cerebral infarction; Z79.899 Other long term (current) drug therapy; Z23 Encounter for immunization; Z68.21 Body mass index [BMI] 21.0-21.9, adult
CPT/HCPCS: A9575; J0696; J1650; J1953; J2470; J2543; J7030; J7120; Q3014